=== PATIENT | female | born 1960 | race Caucasian/White ===

== ENCOUNTER 2016-10-27 13:06 | Inpatient (IN) | payer OTHER ==
[~2016-10-27] VITALS: Ht 162.6 cm; Wt 84.6 kg
[~2016-10-27 13:06] MED LIST: BACL10TA PO; BIS10RS PR; BUPR75TA4 PO; DIPH50TA; DIVA500T53 PO; DOCU-94 PO; FAMO-12 PO; NIC21P TOP; PHENSUP RE; TRAZ100T2
[2016-10-27 14:41] LABS: Albumin 3.3 g/dL (3.4-5.0); Anion Gap 6 (5-15); Calcium 8.2 mg/dL (8.5-10.1); Carbon Dioxide 28 mmol/L (21-32); Chloride 106 mmol/L (98-107); Glucose 84 mg/dL (74-106); Magnesium 2.1 mg/dL (1.6-2.6); Potassium 3.6 mmol/L (3.5-5.1); Sodium 140 mmol/L (136-145)
[2016-10-27 14:44] LABS: Basophils # (auto) 0.1 uL; Basophils % (auto) 0.6 % (0.0-2.0); Eosinophils # (auto) 0.1 uL; Eosinophils % (auto) 1.1 % (0.0-7.0); Hematocrit 46.3 % (36.0-46.0); Hemoglobin 15.5 g/dL (12.2-16.2); Lymphocytes # (auto) 2.3 uL; Lymphocytes % (auto) 25.3 % (10.0-50.0); Mean Corpuscular Hemoglobin 29.4 pg (28.0-32.0); Mean Corpuscular Hgb Conc. 33.5 g/dL (32.0-36.0); Mean Corpuscular Volume 87.9 fL (80.0-100.0); Mean Platelet Volume 8.1 fL (7.4-10.4); Monocytes # (auto) 0.6 uL; Monocytes % (auto) 6.4 % (0.0-12.0); Neutrophils # (auto) 6.1 uL; Neutrophils % (auto) 66.6 % (37.0-80.0); Platelet Count (auto) 224 10^3/uL (140-450); Red Cell Distribution Width 15.5 % (11.6-16.0); White Blood Cell 9.2 10^3/uL (4.4-10.8)
[2016-10-27 14:47] LABS: Alkaline Phosphatase 74 U/L (45-117); Aspartate Aminotransferase 14 U/L (15-37); BUN/Creatinine Ratio 11.3; Bilirubin, Total 0.1 mg/dL (0.2-1.0); Blood Urea Nitrogen 6 mg/dL (7-18); GFR African American 154 mL/min; GFR Non-African American 127 mL/min; Total Protein 6.9 g/dL (6.4-8.2)
[2016-10-27] MEDS ORDERED: MORPHINE SULF INJ 2 MG/ML SYRINGE 1ML IV ONE (21:45)
[2016-10-27] MEDS ORDERED: ONDANSETRON HCL 4 MG/2 ML VIAL IV ONE (21:45)
[2016-10-27] MEDS ORDERED: BACLOFEN 10 MG TAB PO PRN (22:00)
[2016-10-27] MEDS ORDERED: DOCUSATE SOD 100 MG CAP PO PRN (22:00)
[2016-10-27] MEDS ORDERED: ACETAMINOPHEN 325 MG TAB PO PRN (22:00)
[2016-10-27] MEDS ORDERED: ONDANSETRON HCL 4 MG/2 ML VIAL IV PRN (22:00)
[2016-10-27 22:43] LABS: Urine Bilirubin Negative (Negative); Urine Color Yellow (Yellow); Urine Glucose Normal (Normal); Urine Mucus FEW (None Seen); Urine Nitrite Negative (Negative); Urine RBC 8 /hpf (0 - 4); Urine Squamous Epithelial Cell FEW /hpf (<5); Urine Urobilinogen Normal (Negative); Urine pH 7.5 (5.0-8.0)
[2016-10-27 22:45] LABS: Urine Blood 1+ /uL (Negative); Urine Ketone 1+ (Negative)
[2016-10-27 22:45] LABS: INR 1.08 (0.9-1.15); Partial Thromboplastin Time 27.7 sec (22.64-33.71); Prothrombin Time 11.1 sec (9.37-12.3)
[2016-10-27] MEDS: FAMOTIDINE 20 MG TAB PO SCH (22:54)
[2016-10-27] MEDS: traZODone HCL 50 MG TAB PO SCH (22:54)
[2016-10-27 23:58] VITALS: BP 125/64
[2016-10-28] VITALS (8 sets, daily range): BP systolic 94–133; BP diastolic 55–79
[2016-10-28] MEDS: traMADol HCL 50 MG TAB PO PRN ×4 (00:42→22:11)
[2016-10-28] MEDS ORDERED: GABA-339 PO (00:52)
[2016-10-28] MEDS ORDERED: SUCR1TAB PO (00:52)
[2016-10-28] MEDS ORDERED: RIS1T PO (01:05)
[2016-10-28] MEDS ORDERED: OXYB15TA12 PO (01:05)
[2016-10-28] MEDS ORDERED: BUPR100T14 PO (01:05)
[2016-10-28] MEDS: buPROPion HCL 100 MG TAB PO SCH (09:58)
[2016-10-28] MEDS: NICOTINE 14 MG/24HR TOPICAL PATCH TD SCH (09:58)
[2016-10-28] MEDS: FAMOTIDINE 20 MG TAB PO SCH ×2 (09:58→22:11)
[2016-10-28] MEDS: ENOXAPARIN SOD 40 MG/0.4 ML SYRINGE SC SCH (09:59)
[2016-10-28] MEDS: KETOROLAC TROMETH 30 MG/ML 1ML VIAL IV PRN (18:43)
[2016-10-28] MEDS: traZODone HCL 50 MG TAB PO SCH (22:11)
[2016-10-29 04:43] VITALS: BP 111/65
[2016-10-29] MEDS: traMADol HCL 50 MG TAB PO PRN ×2 (05:06→09:07)
[2016-10-29 09:00] VITALS: BP 107/63
[2016-10-29] MEDS: ENOXAPARIN SOD 40 MG/0.4 ML SYRINGE SC SCH (09:06)
[2016-10-29] MEDS: FAMOTIDINE 20 MG TAB PO SCH (09:07)
[2016-10-29] MEDS: buPROPion HCL 100 MG TAB PO SCH (09:07)
[2016-10-29] MEDS: NICOTINE 14 MG/24HR TOPICAL PATCH TD SCH (09:08)
[2016-10-29 12:57] VITALS: BP 103/61
[2016-10-29] MEDS: KETOROLAC TROMETH 30 MG/ML 1ML VIAL IV PRN (13:16)
== END 2016-10-29 13:30 | disposition home or self-care (01) | DRG 347 ==
LOC: ER 13:14 → OVERFLOW 13:15 → WEST WING 13:16
PROVIDERS: ADMIT Internal Medicine; ATTEND Internal Medicine
DX: M54.32 Sciatica, left side (principal); G35 Multiple sclerosis; I10 Essential (primary) hypertension; M54.5 Low back pain; J44.9 Chronic obstructive pulmonary disease, unspecified; F31.9 Bipolar disorder, unspecified; F17.210 Nicotine dependence, cigarettes, uncomplicated; G89.29 Other chronic pain; I25.10 Atherosclerotic heart disease of native coronary artery without angina pectoris; J45.909 Unspecified asthma, uncomplicated; K21.9 Gastro-esophageal reflux disease without esophagitis; M48.00 Spinal stenosis, site unspecified; Z82.3 Family history of stroke; Z82.49 Family history of ischemic heart disease and other diseases of the circulatory system; Z83.3 Family history of diabetes mellitus; Z87.442 Personal history of urinary calculi; Z98.1 Arthrodesis status; Z88.0 Allergy status to penicillin; Z88.2 Allergy status to sulfonamides; Z90.49 Acquired absence of other specified parts of digestive tract; Z90.710 Acquired absence of both cervix and uterus
CPT/HCPCS: 36415; 71010; 72131; 80053; 81001; 83735; 84484; 85025; 85610; 85730; 87086; 93005; 93971; 96374; 96375; J1885; J2405

== ENCOUNTER 2017-03-29 09:56 | Emergency (ER) | payer OTHER ==
[~2017-03-29 09:56] MED LIST changes: +BUPR100T14 PO; +GABA-339 PO; +OXYB15TA12 PO; +RIS1T PO; +SUCR1TAB PO
[2017-03-29 10:30] LABS: Basophils # (auto) 0 uL; Basophils % (auto) 0.6 % (0.0-2.0); CONDITION Y; Eosinophils # (auto) 0.1 uL; Hematocrit 42.2 % (36.0-46.0); Lymphocytes # (auto) 2.5 uL; Lymphocytes % (auto) 38.3 % (10.0-50.0); Mean Corpuscular Hemoglobin 30.1 pg (28.0-32.0); Mean Corpuscular Hgb Conc. 33.1 g/dL (32.0-36.0); Mean Platelet Volume 8.2 fL (7.4-10.4); Monocytes # (auto) 0.4 uL; Monocytes % (auto) 6.3 % (0.0-12.0); Neutrophils # (auto) 3.5 uL; Neutrophils % (auto) 53.8 % (37.0-80.0); Platelet Count (auto) 250 10^3/uL (140-450); Red Cell Distribution Width 14.6 % (11.6-16.0); White Blood Cell 6.4 10^3/uL (4.4-10.8)
[2017-03-29] MEDS ORDERED: MORPHINE SULFATE 4 MG/ML SYRG IV ONE (10:30)
[2017-03-29] MEDS ORDERED: ONDANSETRON HCL 4 MG/2 ML VIAL IV ONE (10:30)
[2017-03-29 10:36] LABS: Urine Bilirubin Negative (Negative); Urine Blood 2+ /uL (Negative); Urine Color Yellow (Yellow); Urine Glucose Normal (Normal); Urine Ketone 1+ (Negative); Urine Mucus FEW (None Seen); Urine Nitrite Negative (Negative); Urine RBC 3 /hpf (0 - 4); Urine Squamous Epithelial Cell FEW /hpf (<5); Urine pH 5.5 (5.0-8.0)
[2017-03-29 10:50] LABS: Albumin 3.1 g/dL (3.4-5.0); BUN/Creatinine Ratio 28.9; Bilirubin, Total 0.3 mg/dL (0.2-1.0); Calcium 8.3 mg/dL (8.5-10.1); Potassium 3.9 mmol/L (3.5-5.1); Total Protein 6.6 g/dL (6.4-8.2)
[2017-03-29 13:02] VITALS: BP 103/69
== END 2017-03-29 13:12 | disposition home or self-care (01) ==
LOC: ER 09:56
DX: N39.0 Urinary tract infection, site not specified (principal); K21.9 Gastro-esophageal reflux disease without esophagitis; J44.9 Chronic obstructive pulmonary disease, unspecified; F17.210 Nicotine dependence, cigarettes, uncomplicated; Z87.442 Personal history of urinary calculi; Z90.710 Acquired absence of both cervix and uterus; Z88.0 Allergy status to penicillin; Z88.2 Allergy status to sulfonamides
CPT/HCPCS: 36415; 74176; 80053; 81001; 83690; 85025; 96374; 96375; 99285; J2270; J2405

== ENCOUNTER 2017-07-04 12:57 | Emergency (ER) | payer OTHER ==
[~2017-07-04] VITALS: Ht 162.6 cm; Wt 65.8 kg
[2017-07-04 14:29] VITALS: BP 116/66
== END 2017-07-04 14:45 | disposition home or self-care (01) ==
LOC: ER 12:57
DX: S22.41XA Multiple fractures of ribs, right side, initial encounter for closed fracture (principal); S80.02XA Contusion of left knee, initial encounter; F17.210 Nicotine dependence, cigarettes, uncomplicated; K21.9 Gastro-esophageal reflux disease without esophagitis; J44.9 Chronic obstructive pulmonary disease, unspecified; W18.39XA Other fall on same level, initial encounter; Y93.89 Activity, other specified; Y92.89 Other specified places as the place of occurrence of the external cause; Y99.8 Other external cause status; Z88.0 Allergy status to penicillin; Z88.1 Allergy status to other antibiotic agents; Z79.899 Other long term (current) drug therapy; Z87.442 Personal history of urinary calculi; Z90.49 Acquired absence of other specified parts of digestive tract; Z90.710 Acquired absence of both cervix and uterus
CPT/HCPCS: 71101; 73562

== ENCOUNTER 2017-07-12 10:52 | Emergency (ER) | payer MEDICAID, OTHER ==
[~2017-07-12] VITALS: Ht 162.6 cm; Wt 65.8 kg
[2017-07-12 11:20] VITALS: BP 126/71
== END 2017-07-12 11:56 | disposition home or self-care (01) ==
LOC: ER 10:52
DX: S22.41XD Multiple fractures of ribs, right side, subsequent encounter for fracture with routine healing (principal); J44.9 Chronic obstructive pulmonary disease, unspecified; K21.9 Gastro-esophageal reflux disease without esophagitis; F17.210 Nicotine dependence, cigarettes, uncomplicated; Z82.49 Family history of ischemic heart disease and other diseases of the circulatory system; Z83.3 Family history of diabetes mellitus; Z82.3 Family history of stroke; Z88.0 Allergy status to penicillin; Z88.2 Allergy status to sulfonamides; V89.2XXD Person injured in unspecified motor-vehicle accident, traffic, subsequent encounter

== ENCOUNTER 2017-10-12 12:00 | Inpatient (IN) | payer MEDICAID ==
[~2017-10-12] VITALS: Ht 162.6 cm; Wt 71.7 kg
[2017-10-12] MEDS ORDERED: MAGNESIUM CITRATE SOLUTION 300 ML BTL PO ONE (21:30)
[2017-10-12] MEDS ORDERED: LACTULOSE 20Gm/30ML SOLN PO ONE (22:45)
[2017-10-12] MEDS ORDERED: SODIUM CHLORIDE 0.9% 1,000 ML IV ONE (23:14)
[2017-10-12 23:55] LABS: Basophils # (auto) 0.1 uL; Basophils % (auto) 1.5 % (0.0-2.0); Eosinophils # (auto) 0.1 uL; Eosinophils % (auto) 1.1 % (0.0-7.0); Hematocrit 45.2 % (36.0-46.0); Hemoglobin 14.7 g/dL (12.2-16.2); Lymphocytes # (auto) 2.6 uL; Mean Corpuscular Hemoglobin 29.7 pg (28.0-32.0); Mean Corpuscular Hgb Conc. 32.6 g/dL (32.0-36.0); Mean Corpuscular Volume 91.1 fL (80.0-100.0); Monocytes # (auto) 0.7 uL; Monocytes % (auto) 8.5 % (0.0-12.0); Neutrophils # (auto) 4.8 uL; Neutrophils % (auto) 57.9 % (37.0-80.0); Nucleated Red Blood Cells % 0.1 %; Platelet Count (auto) 278 10^3/uL (140-450); Red Blood Cells 4.96 10^6/uL (4.0-5.20); Red Cell Distribution Width 14.6 % (11.8-14.3); White Blood Cell 8.3 10^3/uL (4.4-10.8)
[2017-10-12 23:58] LABS: Albumin 3.5 g/dL (3.4-5.0); BUN/Creatinine Ratio 10.5; Calcium 8.7 mg/dL (8.5-10.1); Potassium 3.6 mmol/L (3.5-5.1)
[2017-10-13] LABS: Bilirubin, Total 0.3 mg/dL (0.2-1.0); Total Protein 7.2 g/dL (6.4-8.2)
[2017-10-13] MEDS ORDERED: ONDANSETRON HCL 4 MG/2 ML VIAL IV ONE (01:15)
[2017-10-13] MEDS ORDERED: ACETAMINOPHEN 500 MG TAB PO PRN (02:15)
[2017-10-13 05:38] VITALS: BP 110/66
[2017-10-13] MEDS: GABAPENTIN 100 MG CAP PO SCH ×3 (06:53→21:45)
[2017-10-13] MEDS: buPROPion HCL 100 MG TAB PO SCH ×2 (06:54→19:27)
[2017-10-13 08:32] VITALS: BP 111/63
[2017-10-13 09:08] LABS: Urine Amorphous Crystal FEW /hpf (None Seen); Urine Bacteria NONE SEEN /hpf (None Seen); Urine Blood 1+ /uL (Negative); Urine Specific Gravity 1.008 (1.001-1.035); Urine WBC 1 /hpf (0 - 5)
[2017-10-13] MEDS: LACTULOSE 20Gm/30ML SOLN PO SCH (10:10)
[2017-10-13] MEDS: ONDANSETRON HCL 4 MG/2 ML VIAL IV PRN ×2 (10:13→17:46)
[2017-10-13] MEDS ORDERED: PANTOPRAZOLE 40 MG TAB PO ONE (11:00)
[2017-10-13 12:32] VITALS: BP 116/74
[2017-10-13 16:42] VITALS: BP_SYST 118; BP_SYST 89; BP_DIAS 71; BP_DIAS 73
[2017-10-13] MEDS ORDERED: INFLUENZA QUAD 2017-2018 0.5 ML SYRG IM ONE (17:15)
[2017-10-13] MEDS ORDERED: PNEUMOCOCCAL VACC POLYS 25 MCG/0.5 ML VIAL IM ONE (17:15)
[2017-10-13 20:00] VITALS: BP 113/69
[2017-10-13 22:00] VITALS: BP 113/69
[2017-10-13] MEDS ORDERED: traZODone HCL 50 MG TAB PO SCH (22:00)
[2017-10-14] MEDS: ONDANSETRON HCL 4 MG/2 ML VIAL IV PRN (04:32)
[2017-10-14 05:00] VITALS: BP 112/62
[2017-10-14] MEDS: GABAPENTIN 100 MG CAP PO SCH (06:26)
[2017-10-14] MEDS: buPROPion HCL 100 MG TAB PO SCH (06:26)
[2017-10-14 07:06] LABS: Calcium 8.3 mg/dL (8.5-10.1); Potassium 4.3 mmol/L (3.5-5.1)
[2017-10-14 08:34] VITALS: BP 103/48
[2017-10-14] MEDS ORDERED: PANTOPRAZOLE 40 MG TAB PO SCH (10:00)
[2017-10-14] MEDS: LACTULOSE 20Gm/30ML SOLN PO SCH (10:00)
[2017-10-14 10:01] VITALS: BP 103/48
== END 2017-10-14 11:14 | disposition home or self-care (01) | DRG 247 ==
LOC: ER 12:00 → OVERFLOW 12:01 → CENTRAL 10-13 03:12
PROVIDERS: ADMIT Nurse Practitioner Family; ATTEND Internal Medicine
DX: K56.41 Fecal impaction (principal); G35 Multiple sclerosis; F31.9 Bipolar disorder, unspecified; F17.210 Nicotine dependence, cigarettes, uncomplicated; J44.9 Chronic obstructive pulmonary disease, unspecified; F41.9 Anxiety disorder, unspecified; M54.9 Dorsalgia, unspecified; K21.9 Gastro-esophageal reflux disease without esophagitis; Z79.899 Other long term (current) drug therapy; Z82.3 Family history of stroke; Z82.49 Family history of ischemic heart disease and other diseases of the circulatory system; Z87.442 Personal history of urinary calculi; Z90.710 Acquired absence of both cervix and uterus; Z83.3 Family history of diabetes mellitus; Z88.0 Allergy status to penicillin; Z88.2 Allergy status to sulfonamides
CPT/HCPCS: 36415; 74022; 74176; 80048; 80053; 81001; 83690; 85025; 96361; 96374; J2405

== ENCOUNTER 2018-03-28 11:49 | Emergency (ER) | payer MEDICAID ==
[2018-03-28 15:20] LABS: Basophils # (auto) 0.1 uL; Basophils % (auto) 0.7 % (0.0-2.0); Eosinophils # (auto) 0.1 uL; Eosinophils % (auto) 1.1 % (0.0-7.0); Hematocrit 47.3 % (36.0-46.0); Hemoglobin 15.7 g/dL (12.2-16.2); Lymphocytes % (auto) 22.5 % (10.0-50.0); Mean Corpuscular Hemoglobin 30.7 pg (28.0-32.0); Mean Corpuscular Hgb Conc. 33.3 g/dL (32.0-36.0); Mean Corpuscular Volume 92.2 fL (80.0-100.0); Monocytes # (auto) 0.6 uL; Monocytes % (auto) 6.3 % (0.0-12.0); Neutrophils # (auto) 6.1 uL; Neutrophils % (auto) 69.4 % (37.0-80.0); Nucleated Red Blood Cells % 0.1 %; Platelet Count (auto) 250 10^3/uL (140-450); Red Blood Cells 5.13 10^6/uL (4.0-5.20); Red Cell Distribution Width 14.4 % (11.8-14.3); White Blood Cell 8.8 10^3/uL (4.4-10.8)
[2018-03-28 15:43] LABS: Alanine Aminotransferase 20 U/L (13-56); Albumin 3.4 g/dL (3.4-5.0); Alkaline Phosphatase 72 U/L (45-117); Anion Gap 9 (5-15); Aspartate Aminotransferase 20 U/L (15-37); BUN/Creatinine Ratio 11.8; Bilirubin, Total 0.3 mg/dL (0.2-1.0); Blood Urea Nitrogen 8 mg/dL (7-18); Calcium 8.5 mg/dL (8.5-10.1); Carbon Dioxide 26 mmol/L (21-32); Chloride 105 mmol/L (98-107); GFR African American 115 mL/min; GFR Non-African American 95 mL/min; Glucose 117 mg/dL (74-106); Magnesium 2.5 mg/dL (1.6-2.6); Potassium 3.2 mmol/L (3.5-5.1); Sodium 140 mmol/L (136-145); Total Protein 7.3 g/dL (6.4-8.2)
[2018-03-28 16:08] VITALS: BP 121/81
== END 2018-03-28 16:42 | disposition home or self-care (01) ==
LOC: ER 11:49 → EDBD 11:49 → ER 16:42
DX: F31.9 Bipolar disorder, unspecified (principal); F41.9 Anxiety disorder, unspecified; R20.0 Anesthesia of skin; J44.9 Chronic obstructive pulmonary disease, unspecified; F17.210 Nicotine dependence, cigarettes, uncomplicated; K21.9 Gastro-esophageal reflux disease without esophagitis; Z90.49 Acquired absence of other specified parts of digestive tract; Z90.710 Acquired absence of both cervix and uterus; Z87.442 Personal history of urinary calculi; Z88.0 Allergy status to penicillin; Z88.2 Allergy status to sulfonamides
CPT/HCPCS: 36415; 70450; 80053; 83735; 84484; 85025; 93005

== ENCOUNTER → 2018-12-06 | Day surgery (SDC) | payer MEDICAID ==
[2018-12-05 14:57] LABS: Basophils # (auto) 0.1 uL; Basophils % (auto) 0.9 % (0.0-2.0); Eosinophils # (auto) 0.2 uL; Eosinophils % (auto) 2.4 % (0.0-7.0); Hematocrit 46.4 % (36.0-46.0); Hemoglobin 15.2 g/dL (12.2-16.2); Lymphocytes # (auto) 2.2 uL; Lymphocytes % (auto) 24.6 % (10.0-50.0); Mean Corpuscular Hemoglobin 28.6 pg (28.0-32.0); Mean Corpuscular Hgb Conc. 32.8 g/dL (32.0-36.0); Mean Corpuscular Volume 87.1 fL (80.0-100.0); Monocytes # (auto) 0.5 uL; Monocytes % (auto) 6.2 % (0.0-12.0); Neutrophils # (auto) 5.8 uL; Neutrophils % (auto) 65.9 % (37.0-80.0); Platelet Count (auto) 289 10^3/uL (140-450); Red Blood Cells 5.33 10^6/uL (4.0-5.20); Red Cell Distribution Width 14.7 % (11.8-14.3); White Blood Cell 8.7 10^3/uL (4.4-10.8)
[2018-12-05 15:27] LABS: INR 0.86 (0.9-1.15); Partial Thromboplastin Time 26.3 sec (23.78-33.04); Prothrombin Time 9.3 sec (9.27-12.13)
[2018-12-05 15:43] LABS: Urine Bacteria NONE SEEN /hpf (None Seen); Urine Blood 1+ /uL (Negative); Urine Specific Gravity 1.006 (1.001-1.035); Urine WBC 1 /hpf (0 - 5)
[2018-12-05 15:54] LABS: Albumin 4.2 g/dL (3.4-5.0); Calcium 10.4 mg/dL (8.5-10.1); Potassium 3.6 mmol/L (3.5-5.1)
[2018-12-05 15:59] LABS: BUN/Creatinine Ratio 11.1; Bilirubin, Total 0.3 mg/dL (0.2-1.0); Total Protein 8.2 g/dL (6.4-8.2)
[~2018-12-06] VITALS: Ht 162.6 cm; Wt 68.0 kg
[~2018-12-06] MED LIST changes: +ARIP1TAB7 PO; -BIS10RS PR; -BUPR100T14 PO; -BUPR75TA4 PO; +CLINDAMYCIN 600MG IV 50 ML IV ONE; +CYCL1TAB18 PO; -DIPH50TA; -DIVA500T53 PO; -DOCU-94 PO; -FAMO-12 PO; +HYDR39SU2 RE; +IBUP800T24 PO; +MIDAZOLAM HCL 1MG/1ML-2 ML VIAL ONE; -NIC21P TOP; +ONDANSETRON HCL 4 MG/2 ML VIAL IV ONE; +ONDANSETRON HCL 4 MG/2 ML VIAL IV PRN; +ONDANSETRON HCL 4 MG/2 ML VIAL ONE; -PHENSUP RE; +PROPOFOL 10 MG/ML 20 ML IV ONE; -RIS1T PO; +ROPIVACAINE 0.5% (5MG/ML) 20ML AMPULE IJ ONE; +SENN1TAB14 PO; +SODIUM CHLORIDE LOCK 10 ML ONE; -SUCR1TAB PO; +fentaNYL CITRATE 100 MCG/2 ML VL ONE
[2018-12-06] MEDS: HYDROmorphone HCL 2 MG/ML VL IV PRN ×3 (14:29→14:59)
[2018-12-06 15:11] VITALS: BP 121/59
== END | disposition home or self-care (01) ==
LOC: SUR 10:18
PROVIDERS: ATTEND Podiatrist Foot & Ankle Surgery
DX: M20.41 Other hammer toe(s) (acquired), right foot (principal); F20.9 Schizophrenia, unspecified; F17.210 Nicotine dependence, cigarettes, uncomplicated; I10 Essential (primary) hypertension; F31.9 Bipolar disorder, unspecified; J43.9 Emphysema, unspecified; Z88.0 Allergy status to penicillin; Z88.8 Allergy status to other drugs, medicaments and biological substances; Z86.73 Personal history of transient ischemic attack (TIA), and cerebral infarction without residual deficits; Z79.899 Other long term (current) drug therapy; Z88.1 Allergy status to other antibiotic agents; Z88.5 Allergy status to narcotic agent
CPT/HCPCS: 28285; 36415; 80053; 81001; 84702; 85025; 85610; 85730; J1170; J2250; J2405; J2704; J2795; J3010; J3490

== ENCOUNTER → 2019-12-21 | Emergency (ER) | payer MEDICAID ==
[~2019-12-21] VITALS: Ht 162.6 cm; Wt 81.6 kg
[~2019-12-21] MED LIST changes: -CLINDAMYCIN 600MG IV 50 ML IV ONE; +DOCUSATE SOD 100 MG CAP PO ONE; -MIDAZOLAM HCL 1MG/1ML-2 ML VIAL ONE; -ONDANSETRON HCL 4 MG/2 ML VIAL IV PRN; -ONDANSETRON HCL 4 MG/2 ML VIAL ONE; -PROPOFOL 10 MG/ML 20 ML IV ONE; -ROPIVACAINE 0.5% (5MG/ML) 20ML AMPULE IJ ONE; +SODIUM CHLORIDE 0.9% 1,000 ML IV ONE; -SODIUM CHLORIDE LOCK 10 ML ONE; -TRAZ100T2; +TRAZ100T3; -fentaNYL CITRATE 100 MCG/2 ML VL ONE
[2019-12-21 13:24] LABS: Basophils # (auto) 0 10 ^3/uL (0-0.2); Monocytes # (auto) 0.6 10 ^3/uL (0-1.3); Nucleated Red Blood Cells % 0.1 %; White Blood Cell 8.6 10^3/uL (4.4-10.8)
[2019-12-21 13:26] LABS: Basophils % (auto) 0.4 % (0.0-2.0); Eosinophils # (auto) 0.1 10 ^3/uL (0-0.8); Eosinophils % (auto) 1.4 % (0.0-7.0); Hematocrit 43.6 % (36.0-46.0); Lymphocytes # (auto) 2.2 10 ^3/uL (0.4-5.4); Lymphocytes % (auto) 25.3 % (10.0-50.0); Mean Corpuscular Hemoglobin 26.6 pg (28.0-32.0); Mean Corpuscular Hgb Conc. 32.1 g/dL (32.0-36.0); Neutrophils # (auto) 5.7 10 ^3/uL (1.6-8.6); Neutrophils % (auto) 65.9 % (37.0-80.0); Platelet Count (auto) 337 10^3/uL (140-450); Red Blood Cells 5.26 10^6/uL (4.0-5.20); Red Cell Distribution Width 16.1 % (11.8-14.3)
[2019-12-21 13:41] LABS: Alanine Aminotransferase 25 U/L (13-56); Albumin 3.5 g/dL (3.4-5.0); Anion Gap 5 (5-15); Blood Urea Nitrogen 13 mg/dL (7-18); Calcium 8.8 mg/dL (8.5-10.1); Carbon Dioxide 28 mmol/L (21-32); Chloride 104 mmol/L (98-107); Glucose 88 mg/dL (74-106); INR 1.01 (0.9-1.15); Partial Thromboplastin Time 28.4 sec (23.64-32.05); Potassium 3.6 mmol/L (3.5-5.1); Sodium 137 mmol/L (136-145)
[2019-12-21 13:46] LABS: Alkaline Phosphatase 125 U/L (45-117); Aspartate Aminotransferase 21 U/L (15-37); BUN/Creatinine Ratio 22.4; Bilirubin, Total 0.3 mg/dL (0.2-1.0); GFR African American 137 mL/min; GFR Non-African American 113 mL/min; Total Protein 7.3 g/dL (6.4-8.2)
[2019-12-21 14:16] VITALS: BP 138/76
[2019-12-21 14:42] LABS: Urine Bacteria NONE SEEN /hpf (None Seen); Urine Blood Negative /uL (Negative); Urine Specific Gravity 1.007 (1.001-1.035); Urine WBC 3 /hpf (0 - 5)
[2019-12-21 14:55] LABS: Alcohol, Urine < 3.0 mg/dL (0-5); Amphetamine Screen, Urine NEGATIVE (NEGATIVE); Barbiturate Scree,Urine NEGATIVE (NEGATIVE); Benzodiazephine Screen, Urine NEGATIVE (NEGATIVE); Cannabinoid Screen, Urine NEGATIVE (NEGATIVE); Cocaine Screen, Urine NEGATIVE (NEGATIVE); Opiate Scree,Urine NEGATIVE (NEGATIVE); Phencyclidine Screen, Urine NEGATIVE (NEGATIVE)
== END | disposition home or self-care (01) ==
LOC: ER 11:22
DX: K59.00 Constipation, unspecified (principal); N39.0 Urinary tract infection, site not specified; J44.9 Chronic obstructive pulmonary disease, unspecified; K21.9 Gastro-esophageal reflux disease without esophagitis; F17.210 Nicotine dependence, cigarettes, uncomplicated; Z90.49 Acquired absence of other specified parts of digestive tract; Z90.710 Acquired absence of both cervix and uterus; Z88.0 Allergy status to penicillin; Z88.2 Allergy status to sulfonamides; Z88.8 Allergy status to other drugs, medicaments and biological substances; Z79.899 Other long term (current) drug therapy
CPT/HCPCS: 36415; 71046; 74176; 80053; 80307; 81001; 84484; 85025; 85610; 85730; 96361; 96374; 99285; J2405; J7030

== ENCOUNTER 2021-01-17 07:21 | Emergency (ER) | payer MEDICAID ==
[~2021-01-17] VITALS: Ht 162.6 cm; Wt 77.1 kg
[~2021-01-17 07:21] MED LIST changes: +CYCL10TA6 PO; -CYCL1TAB18 PO; -DOCUSATE SOD 100 MG CAP PO ONE; -IBUP800T24 PO; +IBUP800T27 PO; -ONDANSETRON HCL 4 MG/2 ML VIAL IV ONE; -SODIUM CHLORIDE 0.9% 1,000 ML IV ONE
[2021-01-17 07:25] VITALS: BP 141/61
== END 2021-01-17 09:17 | disposition home or self-care (01) ==
LOC: ER 07:21
DX: J20.9 Acute bronchitis, unspecified (principal); J44.0 Chronic obstructive pulmonary disease with (acute) lower respiratory infection; F17.210 Nicotine dependence, cigarettes, uncomplicated; F41.9 Anxiety disorder, unspecified; F32.9 Major depressive disorder, single episode, unspecified; K21.9 Gastro-esophageal reflux disease without esophagitis; Z87.442 Personal history of urinary calculi; Z90.89 Acquired absence of other organs; Z90.49 Acquired absence of other specified parts of digestive tract; Z98.890 Other specified postprocedural states; Z90.710 Acquired absence of both cervix and uterus; Z20.822 Contact with and (suspected) exposure to COVID-19
CPT/HCPCS: 36415; 71046; 87426; 93005

== ENCOUNTER 2021-01-29 11:15 | Emergency (ER) | payer MEDICAID ==
[~2021-01-29] VITALS: Ht 162.6 cm; Wt 79.8 kg
[~2021-01-29 11:15] MED LIST changes: +CYCL-839 PO; -CYCL10TA6 PO
[2021-01-29 12:13] LABS: Hemoglobin 13.9 g/dL (12.2-16.2); Mean Corpuscular Hemoglobin 27.7 pg (28.0-32.0); Mean Corpuscular Hgb Conc. 33.1 g/dL (32.0-36.0); Mean Corpuscular Volume 83.8 fL (80.0-100.0); Red Blood Cells 5.01 10^6/uL (4.0-5.20); Red Cell Distribution Width 16.8 % (11.8-14.3); White Blood Cell 10.8 10^3/uL (4.4-10.8)
[2021-01-29 12:28] LABS: Basophils % (manual) 0 (0.0-2.0); Blast Cells 0; Myelocytes % 0; Promyelocytes % 0; Reactive Lymphocytes 0
[2021-01-29 12:31] LABS: Urine Bacteria NONE SEEN /hpf (None Seen); Urine Blood Negative /uL (Negative); Urine Mucus FEW (None Seen); Urine Specific Gravity 1.022 (1.001-1.035); Urine WBC 3 /hpf (0 - 5)
[2021-01-29 12:31] LABS: Albumin 3.5 g/dL (3.4-5.0); Calcium 8.8 mg/dL (8.5-10.1); Potassium 3.7 mmol/L (3.5-5.1)
[2021-01-29 12:34] LABS: BUN/Creatinine Ratio 22.2; Bilirubin, Total 0.2 mg/dL (0.2-1.0); Total Protein 7.2 g/dL (6.4-8.2)
[2021-01-29] MEDS ORDERED: ONDANSETRON HCL 4 MG/2 ML VIAL IV ONE (13:00)
[2021-01-29 13:34] LABS: Band Neutrophils % (manual) 3; Eosinophils % (manual) 4 (0-7); Lymphocytes % (manual) 26 (10.0-50.0); Metamyelocytes % 1; Monocytes % (manual) 6 (0-12)
[2021-01-29 13:49] VITALS: BP 122/56
== END 2021-01-29 14:01 | disposition home or self-care (01) ==
LOC: EDUNIT# 11:15 → ER 11:15 → EDBD 11:15 → ER 13:56
DX: N39.0 Urinary tract infection, site not specified (principal); R11.10 Vomiting, unspecified; J44.9 Chronic obstructive pulmonary disease, unspecified; K21.9 Gastro-esophageal reflux disease without esophagitis; F17.210 Nicotine dependence, cigarettes, uncomplicated; Z88.0 Allergy status to penicillin; Z88.2 Allergy status to sulfonamides; Z88.6 Allergy status to analgesic agent; Z90.49 Acquired absence of other specified parts of digestive tract; Z90.710 Acquired absence of both cervix and uterus; Z86.73 Personal history of transient ischemic attack (TIA), and cerebral infarction without residual deficits
CPT/HCPCS: 36415; 80053; 81001; 85007; 85027; 85049; 93005; 96374; 99284; J2405

== ENCOUNTER 2021-07-27 10:37 | Emergency (ER) | payer MEDICAID ==
[~2021-07-27] VITALS: Ht 162.6 cm; Wt 84.8 kg
[2021-07-27 13:48] VITALS: BP 136/84
== END 2021-07-27 13:52 | disposition home or self-care (01) ==
LOC: ER 10:37
DX: J20.9 Acute bronchitis, unspecified (principal); J44.9 Chronic obstructive pulmonary disease, unspecified; K21.9 Gastro-esophageal reflux disease without esophagitis; F17.210 Nicotine dependence, cigarettes, uncomplicated; Z90.49 Acquired absence of other specified parts of digestive tract; Z90.710 Acquired absence of both cervix and uterus; Z79.1 Long term (current) use of non-steroidal anti-inflammatories (NSAID); Z79.899 Other long term (current) drug therapy; Z88.0 Allergy status to penicillin; Z88.2 Allergy status to sulfonamides; Z88.8 Allergy status to other drugs, medicaments and biological substances; Z20.822 Contact with and (suspected) exposure to COVID-19
CPT/HCPCS: 36415; 71045; 87426

== ENCOUNTER 2023-03-29 13:42 | Emergency (ER) | payer MEDICAID, OTHER ==
[~2023-03-29] VITALS: Ht 162.6 cm; Wt 80.0 kg
[~2023-03-29 13:42] MED LIST changes: +HYDR25SU4 RE; -HYDR39SU2 RE; +IBUP-1456 PO; -IBUP800T27 PO; +TRAZ-228; -TRAZ100T3
[2023-03-29 14:10] VITALS: BP 138/50; PULSE 77; RESP 18; TEMP 98.4; O2SAT 98
[2023-03-29] MEDS ORDERED: LIDOCAINE 5% TOPICAL PATCH TOP ONE (16:45)
[2023-03-29] MEDS ORDERED: METH-1181 PO (16:48)
[2023-03-29] MEDS ORDERED: ACET-1304 PO (16:48)
== END 2023-03-29 17:47 | disposition home or self-care (01) ==
LOC: ER 13:42
DX: M54.50 Low back pain, unspecified (principal); J44.9 Chronic obstructive pulmonary disease, unspecified; K21.9 Gastro-esophageal reflux disease without esophagitis; F17.210 Nicotine dependence, cigarettes, uncomplicated; Z90.49 Acquired absence of other specified parts of digestive tract; Z90.710 Acquired absence of both cervix and uterus; Z79.1 Long term (current) use of non-steroidal anti-inflammatories (NSAID); Z79.899 Other long term (current) drug therapy; Z88.0 Allergy status to penicillin; Z88.2 Allergy status to sulfonamides; Z88.8 Allergy status to other drugs, medicaments and biological substances; V49.59XA Passenger injured in collision with other motor vehicles in traffic accident, initial encounter; Y93.89 Activity, other specified; Y92.410 Unspecified street and highway as the place of occurrence of the external cause; Y99.8 Other external cause status

== ENCOUNTER 2025-03-11 17:31 | Inpatient (IN) | payer MEDICAID, OTHER ==
[~2025-03-11] VITALS: Ht 162.6 cm; Wt 77.1 kg
[~2025-03-11 17:31] MED LIST changes: +ACET-1304 PO; -ARIP1TAB7 PO; +ARIP20TA4 PO; +METH-1181 PO
[2025-03-11] MEDS: PANTOPRAZOLE 40 MG/10 ML VIAL INJ IV ONE (18:15)
[2025-03-11 19:10] LABS: INR 1.03 (0.9-1.15); Prothrombin Time 10.9 sec (9.3-11.8)
[2025-03-11 19:25] LABS: Alanine Aminotransferase 23 U/L (7-40); Anion Gap 11 (5-15); BUN/Creatinine Ratio 19.7 (10.0-20.0); Blood Urea Nitrogen 13 mg/dL (9-23); Calcium 9.5 mg/dL (8.7-10.4); Carbon Dioxide 26 mmol/L (20-31); Chloride 105 mmol/L (98-107); Glucose 90 mg/dL (74-106); Potassium 4.5 mmol/L (3.5-5.1); Sodium 142 mmol/L (136-145); Total Protein 7.3 g/dL (5.7-8.2)
[2025-03-11 19:26] LABS: Bilirubin, Total 0.4 mg/dL (0.2-1.0)
[2025-03-11 19:31] LABS: Albumin 5.2 g/dL (3.2-4.8); Alkaline Phosphatase 133 U/L (46-116)
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
[2025-03-11 19:55] LABS: Hematocrit 42.2 % (36.0-46.0); Hemoglobin 13.9 g/dL (12.2-16.2); Mean Corpuscular Hemoglobin 27.7 pg (28.0-32.0); Mean Corpuscular Volume 83.9 fL (80.0-100.0); Nucleated Red Blood Cells % 0.3 %
--- NOTE | 2025-03-11 21:09 | DVH ---
Exam: CT CT AB PEL WO CON-NO ORAL OR IV History: Abdominal pain, hematemesis Comparison Study: None TECHNIQUE: Multidetector CT of the abdomen was performed from lung bases to pubic symphysis. Imaging was performed without IV contrast. Axial, coronal and sagittal multiplanar reformats were obtained fr om the axial data set by the technologist. Radiation Dose Information: CT Dose: CTDI volume is 10.57 mGy. Dose-length product is 586.11 mGy*cm FINDINGS: Evaluation of solid organs is limited due to lack of intravenous contrast use. Findings: Lung Bases: No acute or significant lung base finding. Normal heart size. No pleural or pericardial effusion. Liver: The liver is normal in size. No focal lesions. Gallbladder and Biliary Tree: Gallbladder has been surgically removed. Spleen: Unremarkable Pancreas: The pancreas is grossly normal in appearance. Adrenal Glands: Unremarkable Kidneys: Kidneys are grossly normal without calculi or hydronephrosis. Bladder: Grossly unremarkable for degree of distention. Bowel: The stomach is grossly normal in appearance. Small bowel and colon are normal in caliber and d istribution. The appendix is not visualized; however, no secondary findings of acute appendicitis id entified. Ascites: Absent Lymphadenopathy: No mesenteric, retroperitoneal or periportal lymphadenopathy. Abdominal Wall and Mesentery: Unremarkable. Vasculature: The visualized abdominal aorta is normal in size and caliber. Evaluation of abdominal a nd pelvic vessels is limited due to lack of intravenous contrast. Pelvic Organs: Unremarkable Musculoskeletal: No aggressive focal bony lesions, acute fractures or dislocation. Soft tissues: Unremarkable IMPRESSION: 1. Gallbladder has been surgically removed. 2. No findings of bowel obstruction 3. No nephrolithiasis or hydronephrosis. Radiation optimization: All CT scans at this facility use at least one of these dose optimization leon hniques: automated exposure control mA and/or kV adjustment per patient size (includes targeted exam s where dose is matched to clinical indication) or iterative reconstruction.
[2025-03-11 21:40] LABS: Urine Protein, UAD Negative (Negative)
[2025-03-11] MEDS ORDERED: ONDANSETRON HCL 4 MG/2 ML VIAL IV PRN (23:15)
--- NOTE | 2025-03-12 00:43 | DVHHP2 ---
History of Present Illness Reason for Visit: Hematemesis History of Present Illness 65-year-old female presents for evaluation of hematemesis. Patient reports having two episodes of hematemesis today. She also reports lower abdominal pain has been ongoing for the past three days. No nausea or vomiting. She also reports constipation for the past four days. Past Medical History Skin cancer, asthma, COPD, depression, GERD, dyslipidemia Past Surgical History Cholecystectomy, appendectomy, , hernia repair, hysterectomy, neck surg leobardo Family History Noncontributory Smoke: No ALCOHOL: none Drugs: None Lives: with Family Review of Systems Review of Systems Review of systems are currently negative otherwise addressed in HPI. Allergies: Coded Allergies: Acetaminophen (Verified Allergy, Mild, 12/05/18) Hydrocodone (Verified Allergy, Mild, 12/05/18) Penicillins (Verified Allergy, Unknown, 12/05/18) Sulfa Drugs (Verified Allergy, Unknown, 12/05/18) Medications Current Medications Medications Dose Ordered Sig/Angel Route Start Time Stop Time Status Last Admin Dose Admin Pantoprazole Sodium 40 mg DAILY IV 03/12/25 10:00 Ondansetron HCl 4 mg Q4HP PRN IV 03/11/25 23:15 Levofloxacin/ Dextrose 100 ml @ 100 mls/hr DAILY IV 03/13/25 10:00 Exam Vital Signs Vital Signs Date Time Temp Pulse Resp B/P (MAP) Pulse Ox O2 Delivery O2 Flow Rate FiO2 03/11/25 17:32 98.2 91 16 151/58 80 98.2 Exam Gen: 65-year-old female in mild distress Skin: Warm, dry, normal color and texture, no rash. HEENT: Normocephalic atraumatic, mucous membranes moist and pink. Neck: Cervical and supraclavicular nodes normal without enlargement, trachea is midline, thyroid gland is normal without masses. Pulmonary: Clear to auscultation and percussion bilaterally. Cardiac: Regular rate and rhythm. No murmur Abdomen: Soft, nontender, nondistended, bowel sounds present all 4 quadrants, no guarding, no rigidity, no organomegaly. Extremities: No cyanosis, clubbing, no edema Neuro: Cranial nerves II through XII grossly intact, normal affect and speech, no focal motor deficits. Labs/Xrays ORDERING PHYSICIAN: NORMA HUMPHRIES MD PROCEDURE(s): ABPL - CT AB PEL WO CON-NO ORAL OR IV REASON: Abdominal pain, hematemesis ORDER NUMBER(s): [id number], ACCESSION NUMBER(s): [id number] Exam: CT CT AB PEL WO CON-NO ORAL OR IV History: Abdominal pain, hematemesis Comparison Study: None TECHNIQUE: Multidetector CT of the abdomen was performed from lung bases to pubic symphysis. Imaging was performed without IV contrast. Axial, coronal and sagittal multiplanar reformats were obtained from the axial data set by the technologist. Radiation Dose Information: CT Dose: CTDI volume is 10.57 mGy. Dose-length product is 586.11 mGy*cm FINDINGS: Evaluation of solid organs is limited due to lack of intravenous contrast use. Findings: Lung Bases: No acute or significant lung base finding. Normal heart size. No pleural or pericardial effusion. Liver: The liver is normal in size. No focal lesions. Gallbladder and Biliary Tree: Gallbladder has been surgically removed. Spleen: Unremarkable Pancreas: The pancreas is grossly normal in appearance. Adrenal Glands: Unremarkable Kidneys: Kidneys are grossly normal without calculi or hydronephrosis. Bladder: Grossly unremarkable for degree of distention. Bowel: The stomach is grossly normal in appearance. Small bowel and colon are normal in caliber and distribution. The appendix is not visualized; however, no secondary findings of acute appendicitis identified. Ascites: Absent Lymphadenopathy: No mesenteric, retroperitoneal or periportal lymphadenopathy. Abdominal Wall and Mesentery: Unremarkable. Vasculature: The visualized abdominal aorta is normal in size and caliber. Evaluation of abdominal and pelvic vessels is limited due to lack of intravenous contrast. Pelvic Organs: Unremarkable Musculoskeletal: No aggressive focal bony lesions, acute fractures or di slocation. Soft tissues: Unremarkable IMPRESSION: 1. Gallbladder has been surgically removed. 2. No findings of bowel obstruction 3. No nephrolithiasis or hydronephrosis. Radiation optimization: All CT scans at this facility use at least one of these dose optimization techniques: automated exposure control mA and/or kV adjustment per patient size (includes targeted exams where dose is matched to clinical indication) or iterative reconstruction. Labs Test 03/11/25 20:14 03/11/25 19:43 03/11/25 18:37 Range/Units Urine Color Light-yellow Yellow Urine Clarity Clear Clear Urine pH 6.5 5.0-9.0 Urine Specific [place] 1.015 1.001-1.035 Urine Protein Negative Negative Urine Ketones Negative Negative Urine Blood Negative Negative /uL Urine Nitrite Negative Negative Urine Bilirubin Negative Negative Urine Urobilinogen Normal Negative mg/dL Urine Leukocyte Esterase 2+ Negative /uL Urine RBC None seen 0 - 4 /hpf Urine Microscopic WBC 5 0-5 /HPF Urine Squamous Epithelial Cells Few <5 /hpf Urine Bacteria None seen None Seen /hpf Urine Glucose Normal Normal mg/dL White Blood Count 10.2 4.4-10.8 10^3/uL Red Blood Count 5.04 4.0-5.20 10^6/uL Hemoglobin 13.9 12.2-16.2 g/dL Hematocrit 42.2 36.0-46.0 % Mean Corpuscular Volume 83.9 80.0-100.0 fL Mean Corpuscular Hemoglobin 27.7 L 28.0-32.0 pg Mean Corpuscular Hemoglobin Concent 33.0 32.0-36.0 g/dL Red Cell Distribution Width 15.1 H 11.8-14.3 % Platelet Count 270 140-450 10^3/uL Mean Platelet Volume 8.1 6.9-10.8 fL Neutrophils (%) (Auto) 64.8 37.0-80.0 % Lymphocytes (%) (Auto) 26.5 10.0-50.0 % Monocytes (%) (Auto) 7.0 0.0-12.0 % Eosinophils (%) (Auto) 0.9 0.0-7.0 % Basophils (%) (Auto) 0.8 0.0-2.0 % Neutrophils # (Auto) 6.6 1.6-8.6 10 ^3/uL Lymphocytes # (Auto) 2.7 0.4-5.4 10 ^3/uL Monocytes # (Auto) 0.7 0-1.3 10 ^3/uL Eosinophils # (Auto) 0.1 0-0.8 10 ^3/uL Basophils # (Auto) 0.1 0-0.2 10 ^3/uL Nucleated Red Blood Cells 0.3 % Prothrombin Time 10.9 9.3-11.8 sec Prothrombin Time INR 1.03 0.9-1.15 Sodium Level 142 136-145 mmol/L Potassium Level 4.5 3.5-5.1 mmol/L Chloride Level 105 98-107 mmol/L Carbon Dioxide Level 26 20-31 mmol/L Anion Gap 11 5-15 Blood Urea Nitrogen 13 9-23 mg/dL Creatinine 0.66 0.550-1.02 mg/dL Glomerular Filtration Rate Calc 98 >90 mL/min BUN/Creatinine Ratio 19.7 10.0-20.0 Serum Glucose 90 74-106 mg/dL Lactic Acid Level 1.5 0.4-2.0 mmol/L Calcium Level 9.5 8.7-10.4 mg/dL Total Bilirubin 0.4 0.2-1.0 mg/dL Aspartate Amino Transferase (AST) 34 13-40 U/L Alanine Aminotransferase (ALT) 23 7-40 U/L Alkaline Phosphatase 133 H 46-116 U/L Total Protein 7.3 5.7-8.2 g/dL Albumin 5.2 H 3.2-4.8 g/dL SEPSIS Sepsis Screen Date sepsis recognized/suspect: Mar 11, 2025 Time Sepsis recognized/suspect: 1733 Recent Procedure: No On Antibiotic Therapy: No Respiratory Rate >20: No Heart Rate >90: No Temp<36 C (96.8 F) or >38.3 C: No SBP <90 or MAP <65 mmHG: No New Acute Mental Status Change: No Is the patient on CPAP, BIPAP,: No Physician Orders Stool Occult Blood (03/11/25 18:08) Ct Ab Pel Wo Con-No Oral Or Iv (03/11/25 19:59) * Gi Dvh Manager Utility (03/11/25 23:14) Pantoprazole (Protonix) (03/12/25 10:00) Gastric Occult Blood (03/11/25 23:14) Type And Screen (03/11/25 23:14) Admit (03/11/25 23:14) Ondansetron Hcl (Zofran) (03/11/25 23:15) Complete Blood Count (03/12/25 04:00) Npo (Nothing By Mouth) Diet (03/12/25 Breakfast) Condition: Stable (03/11/25 23:14) Bedrest With Bathroom Privileg (03/11/25 23:14) D5w/Sod Chlo 0.9% (D5w Ns 0.9%) (03/11/25 23:15) Levofloxacin 500mg (Levaquin 500mg/ 100m (03/13/25 10:00) Vital Signs Date Time Temp Pulse Resp B/P (MAP) Pulse Ox O2 Delivery O2 Flow Rate FiO2 03/11/25 17:32 98.2 91 16 151/58 80 98.2 Laboratory Tests Test 03/11/25 18:37 03/11/25 19:43 Lactic Acid Level 1.5 mmol/L (0.4-2.0) White Blood Count 10.2 10^3/uL (4.4-10.8) Assessment/Plan Assessment/Plan Assessment Hematemesis Urinary tract infection Admit the patient to Med surge to the hospitalist Clear liquid diet Rocephin GI consult Pain management Continue treatment per orders. Plan discussed with: Patient My Orders Orders - NORM KAY Procedure Category Date Status Time * Gi Dvh Manager Utility CONS 03/11/25 Transmitted 23:14 Pantoprazole PHA 03/12/25 In Process (Protonix) 10:00 Gastric Occult Blood LAB 03/11/25 Logged 23:14 Type And Screen BBK 03/11/25 In Process 23:14 Admit ADMIT 03/11/25 Transmitted 23:14 Ondansetron Hcl PHA 03/11/25 In Process (Zofran) 23:15 Complete Blood Count LAB 03/12/25 Logged 04:00 Npo (Nothing By DIET 03/12/25 Transmitted Mouth) Diet Breakfast Condition: Stable JAGRUTI 03/11/25 In Process 23:14 Bedrest With Bathroom JAGRUTI 03/11/25 In Process Privileg 23:14 D5w/Sod Chlo 0.9% PHA 03/11/25 In Process (D5w Ns 0.9%) 23:15 Levofloxacin 500mg PHA 03/13/25 In Process (Levaquin 500mg/ 100m 10:00 Date of Service: Mar 11, 2025 Billing Provider: NORM KAY Common Visit Codes: [id number] INP/OBS CARE (HIGH) NORM KAY Mar 12, 2025 00:43
[2025-03-12] MEDS: D5W/SOD CHLO 0.9% 1,000 ML IV ONE (05:08)
[2025-03-12] MEDS ORDERED: ARIP10TA29 PO (08:59)
[2025-03-12] MEDS ORDERED: ALBU108A5 INH (08:59)
[2025-03-12] MEDS ORDERED: CHOL20003 PO (08:59)
[2025-03-12] MEDS ORDERED: POLYPOW85 (08:59)
[2025-03-12] MEDS ORDERED: LINA1CAP2 PO (08:59)
[2025-03-12] MEDS ORDERED: GAB100C PO (08:59)
[2025-03-12] MEDS ORDERED: MEMA1TAB3 PO (08:59)
[2025-03-12] MEDS ORDERED: DOCU-265 PO (08:59)
[2025-03-12] MEDS ORDERED: ONDA-155 (08:59)
[2025-03-12] MEDS ORDERED: ATOR-47 PO (08:59)
[2025-03-12] MEDS ORDERED: PANT40T PO (08:59)
[2025-03-12] MEDS ORDERED: DULO1CAP4 PO (08:59)
[2025-03-12] MEDS ORDERED: MEMA1TAB5 PO (08:59)
[2025-03-12] MEDS ORDERED: DONE1TAB88 PO (08:59)
[2025-03-12] MEDS ORDERED: CYAN100042 PO (08:59)
[2025-03-12 09:15] VITALS: PULSE 94; RESP 26; O2SAT 96
--- NOTE | 2025-03-12 09:51 | DVHINCON2 ---
GI Consult Consult Note GI consult note Date of Consultation: 03/12/2025 Chief Complaint: Hematemesis Referring Physician: Markell Barclay H&P: 65-year-old female seen in ER bed 12 before hematemesis. Patient has history of dementia. History from patient RN and daughter Bertha by telephone conversation. Per daughter patient has history of IBS and PUD, with recent change in diet due to other family members taking care of patient. Patient had nausea and vomiting with orange colored emesis, per daughter patient was drinking red and orange Gatorade also. Last bowel movement four days ago. No melena or red blood in stool. Per daughter Bertha patient has had multiple EGD and colon as gastro group unsure about results. No blood thinners Past Medical History: Skin cancer, asthma, COPD, depression, GERD, dyslipidemia Past Surgical History: Cholecystectomy, appendectomy, , hernia repair, hysterectomy, neck surgery Social History: NO smoking, drinking ETOH and use of illegal drugs. Family History: Noncontributory Review of Systems: Constitutional: no fever, chill, weight loss HEENT: no eye pain, no hearing loss, no oral lesion, no scleral icterus Heart: no chest pain, no chest pressure Lung: no cough, no dyspnea with exertion Abdomen: see HPI Physical exam: General: NAD, AAOX3 Chest: lung espinoza clear to auscultation Heart: RRR, no murmur Abdomen: non-distended, no tenderness to palpation, +BS Labs: Labs Test 03/11/25 20:14 03/11/25 19:43 03/11/25 18:37 Range/Units Urine Color Light-yellow Yellow Urine Clarity Clear Clear Urine pH 6.5 5.0-9.0 Urine Specific [place] 1.015 1.001-1.035 Urine Protein Negative Negative Urine Ketones Negative Negative Urine Blood Negative Negative /uL Urine Nitrite Negative Negative Urine Bilirubin Negative Negative Urine Urobilinogen Normal Negative mg/dL Urine Leukocyte Esterase 2+ Negative /uL Urine RBC None seen 0 - 4 /hpf Urine Microscopic WBC 5 0-5 /HPF Urine Squamous Epithelial Cells Few <5 /hpf Urine Bacteria None seen None Seen /hpf Urine Glucose Normal Normal mg/dL White Blood Count 10.2 4.4-10.8 10^3/uL Red Blood Count 5.04 4.0-5.20 10^6/uL Hemoglobin 13.9 12.2-16.2 g/dL Hematocrit 42.2 36.0-46.0 % Mean Corpuscular Volume 83.9 80.0-100.0 fL Mean Corpuscular Hemoglobin 27.7 L 28.0-32.0 pg Mean Corpuscular Hemoglobin Concent 33.0 32.0-36.0 g/dL Red Cell Distribution Width 15.1 H 11.8-14.3 % Platelet Count 270 140-450 10^3/uL Mean Platelet Volume 8.1 6.9-10.8 fL Neutrophils (%) (Auto) 64.8 37.0-80.0 % Lymphocytes (%) (Auto) 26.5 10.0-50.0 % Monocytes (%) (Auto) 7.0 0.0-12.0 % Eosinophils (%) (Auto) 0.9 0.0-7.0 % Basophils (%) (Auto) 0.8 0.0-2.0 % Neutrophils # (Auto) 6.6 1.6-8.6 10 ^3/uL Lymphocytes # (Auto) 2.7 0.4-5.4 10 ^3/uL Monocytes # (Auto) 0.7 0-1.3 10 ^3/uL Eosinophils # (Auto) 0.1 0-0.8 10 ^3/uL Basophils # (Auto) 0.1 0-0.2 10 ^3/uL Nucleated Red Blood Cells 0.3 % Prothrombin Time 10.9 9.3-11.8 sec Prothrombin Time INR 1.03 0.9-1.15 Sodium Level 142 136-145 mmol/L Potassium Level 4.5 3.5-5.1 mmol/L Chloride Level 105 98-107 mmol/L Carbon Dioxide Level 26 20-31 mmol/L Anion Gap 11 5-15 Blood Urea Nitrogen 13 9-23 mg/dL Creatinine 0.66 0.550-1.02 mg/dL Glomerular Filtration Rate Calc 98 >90 mL/min BUN/Creatinine Ratio 19.7 10.0-20.0 Serum Glucose 90 74-106 mg/dL Lactic Acid Level 1.5 0.4-2.0 mmol/L Calcium Level 9.5 8.7-10.4 mg/dL Total Bilirubin 0.4 0.2-1.0 mg/dL Aspartate Amino Transferase (AST) 34 13-40 U/L Alanine Aminotransferase (ALT) 23 7-40 U/L Alkaline Phosphatase 133 H 46-116 U/L Total Protein 7.3 5.7-8.2 g/dL Albumin 5.2 H 3.2-4.8 g/dL Imaging: CT abdomen pelvis IMPRESSION: 1. Gallbladder has been surgically removed. 2. No findings of bowel obstruction Assessment: Nausea vomiting Possible hematemesis History of PUD History of irritable bowel syndrome Dementia Plan: Discussed with Dr. Baron Obtain records from gastro group of EGD and colonoscopy Protonix and Zofran Stool for occult blood Clear liquid diet advance to full liquid if tolerating We will continue to monitor patient Discussed plan with patient RN and daughter Bertha by telephone conversation Thank you for this consult Date of Service: Mar 12, 2025 Billing Provider: ABDIRIZAK BLACKBURN Common Visit Codes: CONSULT ONLY Consultation Codes: [id number] CONSULT <60MIN ABDIRIZAK BLACKBURN Mar 12, 2025 09:51
[2025-03-12] MEDS ORDERED: DOCUSATE SOD 100 MG CAP PO PRN (10:00)
[2025-03-12] MEDS: PANTOPRAZOLE 40 MG/10 ML VIAL INJ IV SCH (11:50)
[2025-03-12 13:46] LABS: Hematocrit 43.8 % (36.0-46.0); Hemoglobin 14.2 g/dL (12.2-16.2); Mean Corpuscular Hemoglobin 27.6 pg (28.0-32.0); Mean Corpuscular Volume 85.1 fL (80.0-100.0); Nucleated Red Blood Cells % 0.1 %
--- NOTE | 2025-03-12 14:38 | DVHPN2 ---
Subjective Admitted overnight for apparently hematemesis. Her hemoglobin remained stable. No further episodes while in the hospital. Pending GI evaluation Changes from previous H/P or p: No Changes Objective Vitals Vital Signs Date Time Temp Pulse Resp B/P (MAP) Pulse Ox O2 Delivery O2 Flow Rate FiO2 03/12/25 13:00 98.0 68 22 118/47 (70) 95 98.0 03/12/25 09:15 Room Air* 0 21 Exam Alert awake oriented to place and person. Comfortable in bed. No acute distress. HEENT neck supple oropharynx clear. Heart regular rate and rhythm S1-S2. Lungs fair air movement without rales wheezes. Abdomen obese soft nontender. Extremities no edema positive pulses Medications Current Medications Medications Dose Ordered Sig/Angel Route Start Time Stop Time Status Last Admin Dose Admin Pantoprazole Sodium 40 mg DAILY IV 03/12/25 10:00 03/12/25 11:50 40 MG Ondansetron HCl 4 mg Q4HP PRN IV 03/11/25 23:15 Docusate Sodium 100 mg BIDPRN PRN PO 03/12/25 10:00 Laboratory Results Laboratory Tests 03/11/25 18:37 03/12/25 13:24 Chemistry Test 03/11/25 18:37 Albumin 5.2 g/dL (3.2-4.8) H Calcium Level 9.5 mg/dL (8.7-10.4) Total Protein 7.3 g/dL (5.7-8.2) Coagulation Test 03/11/25 18:37 Prothrombin Time 10.9 sec (9.3-11.8) Prothrombin Time INR 1.03 (0.9-1.15) LFT Test 03/11/25 18:37 Alanine Aminotransferase (ALT) 23 U/L (7-40) Alkaline Phosphatase 133 U/L (46-116) H Aspartate Amino Transferase (AST) 34 U/L (13-40) Total Bilirubin 0.4 mg/dL (0.2-1.0) Urinalysis Test 03/11/25 20:14 Urine Color Light-yellow (Yellow) Urine Clarity Clear (Clear) Urine pH 6.5 (5.0-9.0) Urine Specific [place] 1.015 (1.001-1.035) Urine Protein Negative (Negative) Urine Ketones Negative (Negative) Urine Blood Negative /uL (Negative) Urine Nitrite Negative (Negative) Urine Bilirubin Negative (Negative) Urine Urobilinogen Normal mg/dL (Negative) Urine Leukocyte Esterase 2+ /uL (Negative) Urine RBC None seen /hpf (0 - 4) Urine Microscopic WBC 5 /HPF (0-5) Urine Squamous Epithelial Cells Few /hpf (<5) Urine Bacteria None seen /hpf (None Seen) Urine Glucose Normal mg/dL (Normal) Assessment/Plan Assessment/Plan Nausea vomiting Possible hematemesis History of PUD History of irritable bowel syndrome Dementia Given hemoglobin is stable we will continue clear liquids and await GI recommendations. Otherwise physical therapy evaluation. Patient encouraged out of bed and ambulate as tolerated. Continue current treatment and care plan as she is on. Further clinical management per clinical course. Discussed with the nurse regarding care plan Plan discussed with: Patient, Other My Orders Orders - MALINDA WAYNE MD Procedure Category Date Status Time * Gi Dvh Inter Fold Roll Cutter CONS 03/12/25 Transmitted 12:35 Complete Blood Count LAB 03/13/25 Verified 04:00 Pt Request For Service PT 03/12/25 Logged 14:08 Date of Service: Mar 12, 2025 Billing Provider: MALINDA WAYNE MD Common Visit Codes: [id number] INP/OBS CARE(MOD) MALINDA WAYNE MD Mar 12, 2025 14:38
[2025-03-12 17:00] VITALS: BP 109/84; PULSE 84; RESP 16; TEMP 98.1; O2SAT 91
[2025-03-12 17:06] VITALS: PULSE 80; RESP 18; O2SAT 91
[2025-03-12 20:00] VITALS: PULSE 71; RESP 17; O2SAT 92
[2025-03-12 21:00] VITALS: BP 138/69; PULSE 71; RESP 17; TEMP 98; O2SAT 92
[2025-03-13] VITALS (9 sets, daily range): BP systolic 117–136; BP diastolic 61–83; PULSE 69–94; RESP 17–20; TEMP 97.7–98.5; O2SAT 90–95
[2025-03-13] MEDS: PANTOPRAZOLE 40 MG/10 ML VIAL INJ IV ONE (01:59)
[2025-03-13 06:24] LABS: Hematocrit 40.9 % (36.0-46.0); Hemoglobin 13.7 g/dL (12.2-16.2); Mean Corpuscular Hemoglobin 28.0 pg (28.0-32.0); Mean Corpuscular Volume 83.6 fL (80.0-100.0); Nucleated Red Blood Cells % 0.1 %
[2025-03-13 11:16] LABS: Hepatitis B Surface Antigen Negative (Negative); Hepatitis C Antibody Negative (Negative)
[2025-03-13] MEDS ORDERED: PANT40T PO (13:17)
[2025-03-13] MEDS ORDERED: ONDANSETRON HCL 4 MG/2 ML VIAL ONE (13:32)
[2025-03-13] MEDS ORDERED: METOCLOPRAMIDE HCL 5MG/ml INJ 2ml VIAL ONE (13:32)
[2025-03-13] MEDS ORDERED: LIDOCAINE 2% (LOCAL ANESTH.) PF 5ml SDV ONE (13:32)
[2025-03-13] MEDS ORDERED: PROPOFOL 10 MG/ML 20 ML IV ONE (13:33)
--- NOTE | 2025-03-13 14:04 | DVHPN2 ---
Progress Note - Dictate Date Seen: Mar 13, 2025 Medical Necessity Reason Pt with a Central, PICC or Fol: No Subjective No new complaints Patient was tolerating a clear liquid diet No further episodes of nausea vomiting H&H is stable vital signs Vital Sign Date Time Temp Pulse Resp B/P (MAP) Pulse Ox O2 Delivery O2 Flow Rate FiO2 03/13/25 13:00 98.5 77 20 133/83 (100) 93 98.5 03/13/25 08:00 Room Air* 0 21 Total Intake and Output 03/12/25 03/12/25 03/13/25 15:00 23:00 07:00 Intake Total 268 ml Balance 268 ml medications Current Medications Medications Dose Ordered Sig/Angel Route Start Time Stop Time Status Last Admin Dose Admin Pantoprazole Sodium 40 mg DAILY IV 03/12/25 10:00 03/12/25 11:50 40 MG Ondansetron HCl 4 mg Q4HP PRN IV 03/11/25 23:15 Docusate Sodium 100 mg BIDPRN PRN PO 03/12/25 10:00 objective Alert awake oriented to place and person. Comfortable in bed. No acute distress. HEENT neck supple oropharynx clear. Heart regular rate and rhythm S1-S2. Lungs fair air movement without rales wheezes. Abdomen obese soft nontender. Extremities no edema positive pulses laboratory and microbiology Laboratory Tests 03/13/25 05:20 03/11/25 18:37 Test 03/11/25 18:37 Range/Units Serum Glucose 90 74-106 mg/dL Problems(with codes): (1) History of schizophrenia (2) Anxiety (3) Hematemesis (4) COPD (chronic obstructive pulmonary disease) (5) possible peptic ulcer disease Prognosis Plan Patient was brought down to the OR to do a possible endoscopy to evaluate her reported history of hematemesis IV access was compromised and despite multiple attempts no IV access could be established Patient will be returned back to the floor Patient would like to get a PICC line or midline and stay overnight for continued observation Continue Protonix 40 mg IV q.12 hours Plan discussed with: Patient, Daughter (Dr Sarah), Other AMELIA ORTIZ MD Mar 13, 2025 14:04
[2025-03-13] MEDS ORDERED: ALBUTEROL SULF 2.5 MG/0.5ML(0.5%) NEB SOLN NEB PRN (14:45)
--- NOTE | 2025-03-13 16:44 | DVHPN2 ---
Subjective She is scheduled to undergo EGD today. Patient says she had an episode of vomiting blood this morning however it is not witnessed by anyone. Her hemoglobin remained stable Changes from previous H/P or p: No Changes Objective Vitals Vital Signs Date Time Temp Pulse Resp B/P (MAP) Pulse Ox O2 Delivery O2 Flow Rate FiO2 03/13/25 15:56 98.5 77 20 133/83 93 0.0 21 98.5 03/13/25 08:00 Room Air* Intake/Output Intake and Output 03/13/25 07:00 Intake Total 268 ml Balance 268 ml Intake Oral 268 ml Exam Alert awake oriented to place and person. Comfortable in bed. No acute distress. HEENT neck supple oropharynx clear. Heart regular rate and rhythm S1-S2. Lungs fair air movement without rales wheezes. Abdomen obese soft nontender. Extremities no edema positive pulses Medications Current Medications Medications Dose Ordered Sig/Angel Route Start Time Stop Time Status Last Admin Dose Admin Pantoprazole Sodium 40 mg DAILY IV 03/12/25 10:00 03/12/25 11:50 40 MG Ondansetron HCl 4 mg Q4HP PRN IV 03/11/25 23:15 Docusate Sodium 100 mg BIDPRN PRN PO 03/12/25 10:00 Albuterol 1 mcg Q4HPRN IN 03/13/25 18:00 Cancel Baclofen 10 mg Q8HP PRN PO 03/13/25 14:30 Memantine 5 mg QAM PO 03/14/25 07:00 Atorvastatin Calcium 20 mg HS PO 03/13/25 22:00 Donepezil HCl 10 mg HS PO 03/13/25 22:00 Duloxetine HCl 30 mg BID PO 03/13/25 22:00 Memantine 10 mg QPM PO 03/13/25 18:00 Albuterol 2.5 mg Q6HPRN PRN NEB 03/13/25 14:45 Laboratory Results Laboratory Tests 03/11/25 18:37 03/13/25 05:20 Urinalysis Test 03/11/25 20:14 Urine Color Light-yellow (Yellow) Urine Clarity Clear (Clear) Urine pH 6.5 (5.0-9.0) Urine Specific [place] 1.015 (1.001-1.035) Urine Protein Negative (Negative) Urine Ketones Negative (Negative) Urine Blood Negative /uL (Negative) Urine Nitrite Negative (Negative) Urine Bilirubin Negative (Negative) Urine Urobilinogen Normal mg/dL (Negative) Urine Leukocyte Esterase 2+ /uL (Negative) Urine RBC None seen /hpf (0 - 4) Urine Microscopic WBC 5 /HPF (0-5) Urine Squamous Epithelial Cells Few /hpf (<5) Urine Bacteria None seen /hpf (None Seen) Urine Glucose Normal mg/dL (Normal) Assessment/Plan Assessment/Plan Nausea vomiting Possible hematemesis History of PUD History of irritable bowel syndrome Dementia Given hemoglobin is stable we will continue clear liquids and await GI recommendations. Resume her home medications which include dementia medications. Otherwise continue rest of supportive care and treatment. Further clinical management per recommendations from field producer. Discussed with the patient along with the nurse at bedside. Plan discussed with: Patient, Other My Orders Orders - MALINDA WAYNE MD Procedure Category Date Status Time * Faucet Polisher CONS 03/12/25 Transmitted Consult 17:20 Education - Smoking JAGRUTI 03/12/25 In Process Cessation 17:20 * Smoking Cessation CONS 03/12/25 Transmitted Consult 17:20 Clear Liq Diet DIET 03/13/25 Transmitted Dinner Insert Midline ORDERS 03/13/25 Transmitted 14:04 Baclofen Tablet PHA 03/13/25 In Process (Liorisal Tablet) 14:30 Atorvastatin (Lipitor) PHA 03/13/25 In Process 22:00 Donepezil Tablet PHA 03/13/25 In Process (Aricept Tablet) 22:00 Duloxetine Hcl PHA 03/13/25 In Process Capsule (Cymbalta 22:00 Complete Blood Count LAB 03/14/25 Verified 04:00 Albuterol Medneb PHA 03/13/25 In Process (Ventolin Medneb) 14:45 Memantine Tablet PHA 03/14/25 In Process (Namenda Tablet) 07:00 Memantine Tablet PHA 03/13/25 In Process (Namenda Tablet) 18:00 Date of Service: Mar 13, 2025 Billing Provider: MALINDA WAYNE MD Common Visit Codes: [id number] INP/OBS CARE(MOD) MALINDA WAYNE MD Mar 13, 2025 16:43
[2025-03-13] MEDS ORDERED: ALBUTEROL SULF HFA 90MCG INH 200DOSE IN SCH (18:00)
[2025-03-13] MEDS: BACLOFEN 10 MG TAB PO PRN (18:01)
[2025-03-13] MEDS: MEMANTINE HCL 5 MG TAB PO SCH (18:01)
[2025-03-13] MEDS: ATORVASTATIN 20 MG TAB PO SCH (21:41)
[2025-03-13] MEDS: DONEPEZIL HYDROCHLORIDE 5 MG TAB PO SCH (21:41)
[2025-03-14] VITALS (8 sets, daily range): BP systolic 126–135; BP diastolic 66–75; PULSE 70–81; RESP 16–18; TEMP 97.5–98.3; O2SAT 90–98
[2025-03-14] MEDS: MEMANTINE HCL 5 MG TAB PO SCH (06:22)
[2025-03-14 06:38] LABS: Hematocrit 40.1 % (36.0-46.0); Hemoglobin 13.4 g/dL (12.2-16.2); Mean Corpuscular Hemoglobin 28.1 pg (28.0-32.0); Mean Corpuscular Volume 84.1 fL (80.0-100.0); Nucleated Red Blood Cells % 0.1 %
[2025-03-14] MEDS ORDERED: NALOXONE HCL 0.4 MG/ML VIAL ONE (09:08)
[2025-03-14] MEDS ORDERED: FLUMAZENIL 0.1 MG/ML INJ 10ML MDV IV ONE (09:08)
[2025-03-14] MEDS ORDERED: SODIUM CHLORIDE LOCK 10 ML ONE (09:08)
[2025-03-14] MEDS: LIDOCAINE VISCOUS 2% 15ML UD ONE (09:33)
[2025-03-14] MEDS: diphenhdrAMINE HCL 50 MG/1 ML VL ONE (09:36)
[2025-03-14] MEDS: MIDAZOLAM HCL 5 MG/ML-1ML VIAL ONE (09:36)
[2025-03-14] MEDS: fentaNYL CITRATE 100 MCG/2 ML VL ONE (09:36)
--- NOTE | 2025-03-14 09:58 | DVHOP2 ---
Operative Report DATE OF OPERATION: 03/14/25 PROCEDURE: Upper Endoscopy with biopsy. PREOPERATIVE INDICATION: The patient is a 65 -year-old female undergoing endoscopy for nausea vomiting and suspected upper GI bleed POSTOPERATIVE DIAGNOSES: 1. 1-2 cm sliding-type hiatal hernia with slightly irregular squamocolumnar junc tion and minimal grade a erosive esophagitis 2. Mild antral gastritis with pre-pyloric antral gastric erosions 3. Three or four benign-appearing gastric fundic polyps were seen and removed 4. Otherwise normal examination up to the 2nd and 3rd part of the duodenum PROCEDURE PERFORMED BY: Amelia Baron GI NURSE: Josy SCOPE: Olympus videoendoscope. ASA CLASS: 3 PREOPERATIVE MEDICATIONS: Versed 4 mg, Fentanyl 100 mcg, Benadryl 50 mg I administered moderate sedation throughout this _8_ minutes procedure. An independent trained observer pushed medications at my direction, and monitored the patient's level of consciousness and physiological status throughout. PROCEDURE IN DETAIL: After obtaining an informed consent, the patient was placed on left lateral decubitus position. The patient was then sedated with the above medications. A bite block was placed between her teeth. The endoscope was then passed through the oropharynx, into the esophagus, and through the stomach and pylorus up to the second and third part of the duodenum. The endoscope was then withdrawn. The 2nd and 3rd part of the duodenal and the duodenal bulb were normal. Duodenal biopsies were obtained The pre-pyloric area antrum showed gastritis with pre-pyloric antral gastric erosions. Gastric biopsies were obtained On retroflexion the fundus and cardia were normal. There was no fresh or old blood in the stomach Patient had some benign gastric fundic polyps several were removed with cold biopsies The endoscope was then withdrawn into distal esophagus. Patient had a 1-2 cm sliding-type hiatal hernia She had slightly irregular squamocolumnar junction with grade a erosive esophagitis. GE junction biopsies were obtained The remaining distal and proximal esophagus and oropharynx were unremarkable The patient tolerated the procedure well without difficulty. COMPLICATIONS : None SPECIMENS: Duodenal biopsy Gastric biopsies Gastric polyps GE junction biopsies DISPOSITION: Transfer back to the floor Stable PLAN: 1. Await for biopsy result 2. Will place pt on Protonix 40 mg po daily 3. Carafate 1 g p.o. twice a day 4. DC aspirin NSAIDs smoking alcohol 5. Advance diet as tolerated 6. Outpatient follow up with GI Services as needed, patient is stable from GI point of view AMELIA BARON MD Mar 14, 2025 09:58
[2025-03-14] MEDS: SUCRALFATE 1 GM/10 ML ORAL SUSP PO SCH (11:35)
[2025-03-14] MEDS ORDERED: SUCR1SUS5 PO (12:29)
--- NOTE | 2025-03-14 12:31 | DVHDS2 ---
Discharge Summary Date of Admission Mar 11, 2025 at 23:14 Date of Discharge: Mar 14, 2025 Labs/Diagnostic Data: Laboratory Results Test 03/14/25 05:22 03/12/25 18:39 03/11/25 20:14 03/11/25 18:37 White Blood Count 8.0 10^3/uL (4.4-10.8) Red Blood Count 4.76 10^6/uL (4.0-5.20) Hemoglobin 13.4 g/dL (12.2-16.2) Hematocrit 40.1 % (36.0-46.0) Mean Corpuscular Volume 84.1 fL (80.0-100.0) Mean Corpuscular Hemoglobin 28.1 pg (28.0-32.0) Mean Corpuscular Hemoglobin Concent 33.5 g/dL (32.0-36.0) Red Cell Distribution Width 15.5 % (11.8-14.3) Platelet Count 263 10^3/uL (140-450) Mean Platelet Volume 8.3 fL (6.9-10.8) Neutrophils (%) (Auto) 58.4 % (37.0-80.0) Lymphocytes (%) (Auto) 32.0 % (10.0-50.0) Monocytes (%) (Auto) 7.4 % (0.0-12.0) Eosinophils (%) (Auto) 1.3 % (0.0-7.0) Basophils (%) (Auto) 0.9 % (0.0-2.0) Neutrophils # (Auto) 4.7 10 ^3/uL (1.6-8.6) Lymphocytes # (Auto) 2.6 10 ^3/uL (0.4-5.4) Monocytes # (Auto) 0.6 10 ^3/uL (0-1.3) Eosinophils # (Auto) 0.1 10 ^3/uL (0-0.8) Basophils # (Auto) 0.1 10 ^3/uL (0-0.2) Nucleated Red Blood Cells 0.1 % Hepatitis B Surface Antigen Negative (Negative) Hepatitis C Antibody Negative (Negative) Urine Color Light-yellow (Yellow) Urine Clarity Clear (Clear) Urine pH 6.5 (5.0-9.0) Urine Specific [place] 1.015 (1.001-1.035) Urine Protein Negative (Negative) Urine Ketones Negative (Negative) Urine Blood Negative /uL (Negative) Urine Nitrite Negative (Negative) Urine Bilirubin Negative (Negative) Urine Urobilinogen Normal mg/dL (Negative) Urine Leukocyte Esterase 2+ /uL (Negative) Urine RBC None seen /hpf (0 - 4) Urine Microscopic WBC 5 /HPF (0-5) Urine Squamous Epithelial Cells Few /hpf (<5) Urine Bacteria None seen /hpf (None Seen) Urine Glucose Normal mg/dL (Normal) Prothrombin Time 10.9 sec (9.3-11.8) Prothrombin Time INR 1.03 (0.9-1.15) Sodium Level 142 mmol/L (136-145) Potassium Level 4.5 mmol/L (3.5-5.1) Chloride Level 105 mmol/L (98-107) Carbon Dioxide Level 26 mmol/L (20-31) Anion Gap 11 (5-15) Blood Urea Nitrogen 13 mg/dL (9-23) Creatinine 0.66 mg/dL (0.550-1.02) Glomerular Filtration Rate Calc 98 mL/min (>90) BUN/Creatinine Ratio 19.7 (10.0-20.0) Serum Glucose 90 mg/dL (74-106) Lactic Acid Level 1.5 mmol/L (0.4-2.0) Calcium Level 9.5 mg/dL (8.7-10.4) Total Bilirubin 0.4 mg/dL (0.2-1.0) Aspartate Amino Transferase (AST) 34 U/L (13-40) Alanine Aminotransferase (ALT) 23 U/L (7-40) Alkaline Phosphatase 133 U/L (46-116) Total Protein 7.3 g/dL (5.7-8.2) Albumin 5.2 g/dL (3.2-4.8) Other Laboratory Tests 03/14/25 05:22 03/11/25 18:37 Brief Hx & Hospital Course: 65-year-old female presents for evaluation of hematemesis. Patient reports having two episodes of hematemesis today. She also reports lower abdominal pain has been ongoing for the past three days. No nausea or vomiting. She also reports constipation for the past four days. She is admitted underwent GI evaluation. Her hemoglobin remained stable during hospitalization. Patient did not have any documented on observed hematemesis while in the hospital. Patient had a EGD showed some gastric erosions but no active bleeding. Patient recommended proton pump inhibitor and Carafate by marketing research intern. Patient is otherwise clinically stable. Having had necessary workup and evaluations clinically being stable it is felt she could be safely discharged home. I have talked with the patient regarding her EGD findings, discharge medications, discharge diagnosis and follow-up plan of care. She has verbalized understanding of these and agree with the care plan as outlined. Operations or Procedures Operative Report DATE OF OPERATION: 03/14/25 PROCEDURE: Upper Endoscopy with biopsy. PREOPERATIVE INDICATION: The patient is a 65 -year-old female undergoing endoscopy for nausea vomiting and suspected upper GI bleed POSTOPERATIVE DIAGNOSES: 1. 1-2 cm sliding-type hiatal hernia with slightly irregular squamocolumnar junction and minimal grade a erosive esophagitis 2. Mild antral gastritis with pre-pyloric antral gastric erosions 3. Three or four benign-appearing gastric fundic polyps were seen and removed 4. Otherwise normal examination up to the 2nd and 3rd part of the duodenum PROCEDURE PERFORMED BY: Amelia Baron GI NURSE: Josy SCOPE: Olympus videoendoscope. ASA CLASS: 3 PREOPERATIVE MEDICATIONS: Versed 4 mg, Fentanyl 100 mcg, Benadryl 50 mg I administered moderate sedation throughout this _8_ minutes procedure. An independent trained observer pushed medications at my direction, and monitored the patient's level of consciousness and physiological status throughout. PROCEDURE IN DETAIL: After obtaining an informed consent, the patient was placed on left lateral decubitus position. The patient was then sedated with the above medications. A bite block was placed between her teeth. The endoscope was then passed through the oropharynx, into the esophagus, and through the stomach and pylorus up to the second and third part of the duodenum. The endoscope was then withdrawn. The 2nd and 3rd part of the duodenal and the duodenal bulb were normal. Duodenal biopsies were obtained The pre-pyloric area antrum showed gastritis with pre-pyloric antral gastric erosions. Gastric biopsies were obtained On retroflexion the fundus and cardia were normal. There was no fresh or old blood in the stomach Patient had some benign gastric fundic polyps several were removed with cold biopsies The endoscope was then withdrawn into distal esophagus. Patient had a 1-2 cm sliding-type hiatal hernia She had slightly irregular squamocolumnar junction with grade a erosive esophagitis. GE junction biopsies were obtained The remaining distal and proximal esophagus and oropharynx were unremarkable The patient tolerated the procedure well without difficulty. COMPLICATIONS : None SPECIMENS: Duodenal biopsy Gastric biopsies Gastric polyps GE junction biopsies DISPOSITION: Transfer back to the floor Stable PLAN: 1. Await for biopsy result 2. Will place pt on Protonix 40 mg po daily 3. Carafate 1 g p.o. twice a day 4. DC aspirin NSAIDs smoking alcohol 5. Advance diet as tolerated 6. Outpatient follow up with GI Services as needed, patient is stable from GI point of view AMELIA BARON MD Mar 14, 2025 09:58 Condition at Discharge: Stable Final Diagnosis/Problems List actue gastritis/hiata hernia s/p EGD 1. 1-2 cm sliding-type hiatal hernia with slightly irregular squamocolumnar junction and minimal grade a erosive esophagitis 2. Mild antral gastritis with pre-pyloric antral gastric erosions 3. Three or four benign-appearing gastric fundic polyps were seen and removed Discharge Disposition: Home Discharge Instruct/Medications Diet: Consistent carbohydrate, Cardiac 2g Na,low cholest Activity: No Restrictions, As Tolerated Follow Up/Referral: PCP next week and Dr.Neera Baron 2 weeks follow up gastritis Medications: as prescribed and home medications. AVOID ALL NSAIDs medications Scheduled Acetaminophen (Tylenol Extra Strength), 500 MG PO TID Atorvastatin Calcium (Atorvastatin Calcium), 1 TAB PO DAILY, (Reported) Cholecalciferol (Vitamin D-3 Super Strengt), 1 TAB PO DAILY, (Reported) Cyanocobalamin (Vitamin B-12), 1 TAB PO DAILY, (Reported) Docusate Sodium (Docusate Sodium), 1-2 CAP PO DAILY, (Reported) Duloxetine HCl (Duloxetine HCl), 1 CAP PO DAILY, (Reported) Linaclotide Base (Linzess), 1 CAP PO QAM, (Reported) Memantine Hydrochloride (Memantine HCl), 1 TAB PO DAILY, (Reported) Memantine Hydrochloride (Memantine HCl), 1 TAB PO BID, (Reported) Pantoprazole Sodium Sesquihydr (Pantoprazole Sodium), 1 TAB PO BID Sucralfate (Carafate), 10 ML PO BID Scheduled PRN Baclofen (Baclofen), 10 MG PO Q8HP PRN for FOR MUSCLE SPASM, (Reported) Miscellaneous Medications Albuterol Sulfate (Albuterol Sulfate Hfa), INH, (Reported) Aripiprazole (Abilify), 10 MG PO, (Reported) Aripiprazole (Aripiprazole), PO, (Reported) Donepezil Hydrochloride (Donepezil Hcl), 1 TAB PO, (Reported) Gabapentin (Gabapentin), 1 CAP PO, (Reported) Ondansetron HCl (Ondansetron), (Reported) Polyethylene Glycol 3350 (Clearlax), (Reported) Discontinued Medications Ibuprofen (Ibuprofen), 800 MG PO, (Reported) Discharge Statement: "Patient was advised to return to the ER or call 911 if any headaches, dizziness, shortness of breath, chest pain, abdominal pain, bleeding, fevers, or worsening of medical condition. Patient was counseled about treatment plan, medications, possible side effects, patientverbalized understanding. All questions were answered to the best of my ability. This discharge took greater then 30 minutes in planning, reviewing documentation, counseling the patient, and discussing with other team members." ASSESSMENT ASSESSMENT Assessment actue gastritis/hiata hernia s/p EGD 1. 1-2 cm sliding-type hiatal hernia with slightly irregular squamocolumnar junction and minimal grade a erosive esophagitis 2. Mild antral gastritis with pre-pyloric antral gastric erosions 3. Three or four benign-appearing gastric fundic polyps were seen and removed Date of Service: Mar 14, 2025 Billing Provider: MALINDA WAYNE MD Common Visit Codes: 13082-VKC/OBS DISCH DAY <30MIN MALINDA WAYNE MD Mar 14, 2025 12:31
[2025-03-14] MEDS ORDERED: PANTOPRAZOLE 40 MG TAB PO SCH (17:00)
== END 2025-03-14 15:15 | disposition home or self-care (01) | DRG 241 ==
LOC: ER 17:31 → OVERFLOW 23:14 → CENTRAL 03-12 17:03
PROVIDERS: ADMIT Hospitalist; ATTEND Hospitalist
PROC: 0DB68ZX Excision of Stomach, Via Natural or Artificial Opening Endoscopic, Diagnostic (ICD-10-PCS; 2025-03-14)
PROC: 0DB48ZX Excision of Esophagogastric Junction, Via Natural or Artificial Opening Endoscopic, Diagnostic (ICD-10-PCS; 2025-03-14)
PROC: 0DB98ZX Excision of Duodenum, Via Natural or Artificial Opening Endoscopic, Diagnostic (ICD-10-PCS; principal; 2025-03-14 09:32)
DX: K25.4 Chronic or unspecified gastric ulcer with hemorrhage (principal); K22.11 Ulcer of esophagus with bleeding; F03.90 Unspecified dementia, unspecified severity, without behavioral disturbance, psychotic disturbance, mood disturbance, and anxiety; K29.70 Gastritis, unspecified, without bleeding; J44.89 Other specified chronic obstructive pulmonary disease; N39.0 Urinary tract infection, site not specified; K44.9 Diaphragmatic hernia without obstruction or gangrene; R73.03 Prediabetes; K21.9 Gastro-esophageal reflux disease without esophagitis; F41.9 Anxiety disorder, unspecified; K59.00 Constipation, unspecified; K31.7 Polyp of stomach and duodenum; E78.5 Hyperlipidemia, unspecified; F17.210 Nicotine dependence, cigarettes, uncomplicated; K58.9 Irritable bowel syndrome, unspecified; Z90.710 Acquired absence of both cervix and uterus; Z87.442 Personal history of urinary calculi; Z90.49 Acquired absence of other specified parts of digestive tract; Z87.11 Personal history of peptic ulcer disease; Z86.73 Personal history of transient ischemic attack (TIA), and cerebral infarction without residual deficits; Z85.828 Personal history of other malignant neoplasm of skin; Z88.5 Allergy status to narcotic agent; Z88.0 Allergy status to penicillin; Z88.6 Allergy status to analgesic agent; Z88.2 Allergy status to sulfonamides
CPT/HCPCS: 36415; 43239; 74176; 80053; 81001; 83605; 85025; 85610; 86803; 86850; 86900; 86901; 87340; 97163; G0378; J1956; J2003; J2250; J2405; J2470; J2704

== ENCOUNTER 2025-05-14 15:02 | Emergency (ER) | payer MEDICAID ==
[~2025-05-14] VITALS: Ht 162.6 cm; Wt 81.5 kg
[~2025-05-14 15:02] MED LIST changes: +ALBU108A5 INH; +ARIP10TA29 PO; +ATOR-47 PO; +CHOL20003 PO; +CYAN100042 PO; -CYCL-839 PO; +DOCU-265 PO; +DONE1TAB88 PO; +DULO1CAP4 PO; +GAB100C PO; -GABA-339 PO; -HYDR25SU4 RE; -IBUP-1456 PO; +LINA1CAP2 PO; +MEMA1TAB3 PO; +MEMA1TAB5 PO; -METH-1181 PO; +ONDA-155; -OXYB15TA12 PO; +PANT40T PO; +POLYPOW85; -SENN1TAB14 PO; +SUCR1SUS5 PO; -TRAZ-228
--- NOTE | 2025-05-14 15:47 | ED.PDOC ---
Alexey. trauma (HPI) HPI Comments 65 y/o F, with PMHx of dementia, anxiety, asthma, cancer, COPD, HLD, TIA's presents to the ED for CC of s/p fall injury. Patient was brought in by daughter, d/t fall injury at [facility]. Daughter reports, patient had a fall resulting in hitting her head on a concrete bench as per staff. Patient's daughter relays, that she would not like any imagining studies done at this time and would like patient to be observed for change in status and mentation. Chief Complaint: Fall Injury Time Seen by MD: 15:40 Primary Care Provider: MELVINA Reviewed notes: Nurses Notes, Medications, Allergies Allergies: Coded Allergies: Acetaminophen (Verified Allergy, Mild, 12/05/18) Hydrocodone (Verified Allergy, Mild, 12/05/18) Penicillins (Verified Allergy, Unknown, 12/05/18) Sulfa Drugs (Verified Allergy, Unknown, 12/05/18) Home Meds Active Scripts Sucralfate (Carafate) 1 Gm/10 Ml Shaista, 10 ML PO BID, #120 ML 1 Refill Prov:MALINDA WAYNE MD 03/14/25 Pantoprazole Sodium Sesquihydr (Pantoprazole Sodium) 40 Mg Tab, 1 TAB PO BID, #60 TAB Prov:MALINDA WAYNE MD 03/13/25 Acetaminophen (Tylenol Extra Strength) 500 Mg Tab, 500 MG PO TID for 10 Days, #30 TAB 0 Refills Prov:COLBY TOMLIN CLASSIFICATION CLERK 03/29/23 Reported Medications Atorvastatin Calcium (ATORVASTATIN CALCIUM) 80 Mg Tab, 1 TAB PO DAILY 03/12/25 Cholecalciferol (Vitamin D-3 Super Strengt) 2,000 Unit Tab, 1 TAB PO DAILY 03/12/25 Donepezil Hydrochloride (DONEPEZIL HCL) 10 Mg Tab, 1 TAB PO 03/12/25 Albuterol Sulfate (Albuterol Sulfate Hfa) 108 Mcg/Act Aer, INH 03/12/25 Linaclotide Base (Linzess) 72 Mcg Cap, 1 CAP PO QAM 03/12/25 Memantine Hydrochloride (Memantine HCl) 5 Mg Tab, 1 TAB PO BID 03/12/25 Duloxetine HCl (Duloxetine HCl) 20 Mg Cap, 1 CAP PO DAILY 03/12/25 Docusate Sodium (Docusate Sodium) 100 Mg Cap, 1-2 CAP PO DAILY 03/12/25 Cyanocobalamin (Vitamin B-12) 1,000 Mcg Tab, 1 TAB PO DAILY 03/12/25 Aripiprazole (Aripiprazole) 10 Mg Tab, PO 03/12/25 Ondansetron HCl (Ondansetron) 4 Mg Tab 03/12/25 Polyethylene Glycol 3350 (Clearlax) 17 Gm/Scoop Pow 03/12/25 Gabapentin (Gabapentin) 100 Mg Cap, 1 CAP PO 03/12/25 Memantine Hydrochloride (Memantine HCl) 10 Mg Tab, 1 TAB PO DAILY 03/12/25 Aripiprazole (Abilify) 20 Mg Tab, 10 MG PO, TAB 12/05/18 Baclofen (Baclofen) 10 Mg Tab, 10 MG PO Q8HP PRN for FOR MUSCLE SPASM for 30 Days, MG 12/21/14 Information Source: Patient Mode of Arrival: Ambulatory Severity: Moderate Timing: Minutes Duration: Since onset Prehospital treatment: None Location: Head Location of laceration: None Mechanism: Fall Associated signs and symtoms: Headache Past Medical History PAST MEDICAL HISTORY: Anxiety, Asthma, Cancer, COPD, Depression, GERD, High Lipids, Kidney Stones, TIA Surgical History: Appendectomy, Cholecystectomy, , Hernia Repair, Hysterectomy ALL SOURCE COLLECTION MANAGER History: No Pertinent ALL SOURCE COLLECTION MANAGER History Family History Family History: No family hx of DM, No family hx of Heart jordan, No family hx of HTN, No family hx of Stroke Social History Smoker: Cigarettes, Greater Than 1 Pack/Day Alcohol: Denies ETOH Use Drugs: Denies Drug Use Lives In: Home Constitutional: denies: chills, diaphoresis, fatigue, fever, malaise, sweats, weakness, others EENTM: denies: blurred vision, double vision, ear bleeding, ear discharge, ear drainage, ear pain, ear ringing, eye pain, eye redness, hearing loss, mouth pain, mouth swelling, nasal discharge, nose bleeding, nose congestion, nose pain, photophobia, tearing, throat pain, throat swelling, voice changes, others Respiratory: denies: cough, hemoptysis, orthopnea, SOB at rest, shortness of breath, SOB with excertion, stridor, wheezing, others Cardiovascular: denies: chest pain, dizzy spells, diaphoresis, Dyspnea on exertion, edema, irregular heart beat, left arm pain, lightheadedness, palpitations, PND, syncope, others Gastrointestinal: denies: abdomen distended, abdominal pain, blood streaked bowels, constipated, diarrhea, dysphagia, difficulty swallowing, hematemesis, melena, nausea, poor appetite, poor fluid intake, rectal bleeding, rectal pain, vomiting, others Genitourinary: denies: abnormal vagina bleeding, burning, dyspareunia, dysuria, flank pain, frequency, hematuria, incontinence, pain, , vagina discharge, urgency, others Neurological: reports: headache; denies: dizziness, fainting, left sided numbness, left sided weakness, numbness, paresthesia, pre-existing deficit, right sided numbness, right sided weakness, seizure, speech problems, tingling, tremors, weakness, others Musculoskeletal: denies: back pain, gout, joint pain, joint swelling, muscle pain, muscle stiffness, neck pain, others Integumetry: denies: bruises, change in color, change in hair/nails, dryness, laceration, lesions, lumps, rash, wounds, others Allergic/Immunocompromised: denies: Difficulty Healing, Frequent Infections, Hives, Itching, others Hematologic/Lymphatic: denies: anemia, blood clots, easy bleeding, easy bruising, swollen glands, others Endocrine: denies: excessive hunger, excessive sweating, excessive thirst, excessive urination, flushing, intolerance to cold, intolerance to heat, unexplained weight gain, unexplained weight loss, others Psychiatric: denies: anxiety, bipolar disorder, depression, hopeless, panic disorder, schizophrenia, sleepless, suicidal, others All Other Systems: Reviewed and Negative Physical Exam General Appearance: No Apparent Distress, Normal HEENT: Normal ENT Inspection, Pharynx Normal Neck: Full Range of Motion, Non-Tender, Normal, Normal Inspection Respiratory: Chest Non-Tender, Lungs Clear, No Accessory Muscle Use, No Respiratory Distress, Normal Breath Sounds Cardiovascular: No Edema, No Murmur, No Gallop, Normal Peripheral Pulses, Regular Rate/Rhythm Breast Exam: Deferred Gastrointestinal: No Organomegaly, Non Tender, No Pulsatile Mass, Normal Bowel Sounds, Soft Genitalia: Deferred Pelvic: Deferred Rectal: Deferred Extremities: No calf tenderness, Normal capillary refill, Normal inspection, Normal range of motion, Non-tender, No pedal edema Musculoskeletal : Apperance: Normal Neurologic: Alert, leak patcher II-XII nml as Tested, No Motor Deficits, Normal Affect, Normal Mood, No Sensory Deficits Cerebellar Function: Normal Reflexes: Normal Skin: Dry, Normal Color, Warm Lymphatic: No Adenopathy Was a procedure done? Was a procedure done?: No Differential Diagnosis Multiple Trauma: Closed Head Injury, Fractures X-Ray, Labs, Meds, VS Vital Signs Date Time Temp Pulse Resp B/P (MAP) Pulse Ox O2 Delivery O2 Flow Rate FiO2 05/14/25 17:54 98.3 05/14/25 17:14 98.2 84 16 116/52 (73) 94 98.2 05/14/25 17:14 Room Air* 0 21 05/14/25 15:21 88 05/14/25 15:04 98.1 91 19 139/45 98.1 Lab Test 05/14/25 15:15 Range/Units POC Glucose 130 H 70-106 mg/dl Current Medications Medications (Trade) Dose Ordered Sig/Angel Route Start Time Stop Time Status Last Admin Acetaminophen (Tylenol Tablet) 650 mg ONCE ONCE PO 05/14/25 18:00 05/14/25 18:01 DC 05/14/25 17:54 Time of 1ST Reevaluation: 16:10 Reevaluation 1ST: Unchanged Time of 2ND Reevaluation: 18:30 Reevaluation 2ND: Unchanged Patient Education/Counseling: Other (Patient has dementia) Family Education/Counseling: Prognosis, Need For Follow Up, No Family Present Comments This is a patient who possibly had fallen caught by caregiver. There is no obvious injuries. However the daughter wanted the patient is rechecked but declined to have a CAT scan. So we elected to keep the patient in the ER for observation and reassessment. On several reassessments, patient remains in the same condition without any changes in mental status. Patient's daughters still declined to have the CAT scan and wishes to take the patient back. Departure 1 Departure Time of Disposition: 18:31 Impression: Primary Impression: Falling Additional Impression: Dementia Disposition: HOME / SELF CARE / HOMELESS Condition: Stable Discharged With: Relative Critical Care Note Critical Care Time?: No Stability Stability form required: No Heart Score Heart Score: Heart Score Response (Comments) Value History N/A 0 EKG N/A 0 Age N/A 0 Risk Factors N/A 0 Troponin N/A 0 Total 0 I personally scribed for RAYMOND MALDONADO MD ([email or web address]) on 05/14/25 at 15:47. Electronically submitted by Isabel Abdi ([email or web address]). RAYMOND MALDONADO MD May 14, 2025 15:47
[2025-05-14] MEDS: ACETAMINOPHEN 325 MG TAB PO ONE (17:54)
[2025-05-14 18:43] VITALS: BP 118/60; PULSE 82; RESP 16; TEMP 98.2; O2SAT 82
--- NOTE | 2025-05-20 09:43 | ECG ---
[facility] Test Date: 2025-05-14 Test Time: 15:21:35 Pat Name: GREGORIO BRAVO Department: Room: Gender: F Forensic Toxicologist: DR GLOVER: 1960 Requested By: RAYMOND MALDONADO Order Number: [id number] Reading MD: Shaka Hodge Measurements Intervals Jay Em Rate: 88 P: 59 TX: 160 QRS: 62 QRSD: 90 T: 58 QT: 366 QTc: 443 Interpretive Statements Sinus rhythm Probable left atrial enlargement Electronically Signed On 05-21-2025 15:06:25 PDT by Shaka Hodge Please click the below link to view image of tracing.
== END 2025-05-14 18:47 | disposition home or self-care (01) ==
LOC: ER 15:02
DX: F03.94 Unspecified dementia, unspecified severity, with anxiety (principal); Z79.899 Other long term (current) drug therapy; Z88.0 Allergy status to penicillin; Z88.2 Allergy status to sulfonamides; Z88.5 Allergy status to narcotic agent; Z90.49 Acquired absence of other specified parts of digestive tract; Z90.710 Acquired absence of both cervix and uterus; Z98.890 Other specified postprocedural states; W18.39XA Other fall on same level, initial encounter; Y93.89 Activity, other specified; Y92.89 Other specified places as the place of occurrence of the external cause; Y99.8 Other external cause status
CPT/HCPCS: 82947; 82962; 93005